=== PATIENT | male | born 1970 | race Asian ===

== ENCOUNTER 2017-12-12 13:38 | Emergency (ER) | payer OTHER ==
[~2017-12-12] VITALS: Ht 170.2 cm; Wt 68.2 kg
[2017-12-12] MEDS ORDERED: OXYMETAZOLINE HCL 0.05% 15 ML NASAL SPRAY NASAL ONE (15:15)
[2017-12-12] MEDS ORDERED: ChlordiazePOXIDE HCL 25 MG CAPSULE PO ONE (15:45)
[2017-12-12 15:46] LABS: BASOPHILS % (AUTO) 0.3 % (0.0-2.0); EOSINOPHILS % (AUTO) 0.2 % (1.0-6.0); HEMATOCRIT 26.4 % (41-53); LYMPHOCYTES # (AUTO) 1.3 K/uL (1.0-4.8); LYMPHOCYTES % (AUTO) 8.8 % (22.0-44.0); MEAN CORPUSCULAR HEMOGLOBIN 31.7 pg (26.0-34.0); MEAN CORPUSCULAR HGB CONC 34.1 G/dL (31.0-37.0); MEAN CORPUSCULAR VOLUME 93 fL (80-100); MONOCYTES # (AUTO) 0.9 K/uL (0.1-1.0); MONOCYTES % (AUTO) 6.1 % (2.0-9.0); NEUTROPHILS # (AUTO) 12.7 K/uL (1.8-7.7); NEUTROPHILS % (AUTO) 84.6 % (40.0-70.0); PLATELET COUNT (AUTO) 347 K/uL (150-450); RED BLOOD CELL COUNT(AUTO) 2.83 MIL/uL (4.50-5.90); RED CELL DISTRIBUTION WIDTH 14.1 % (11.5-14.5)
[2017-12-12 15:55] LABS: ANION GAP 9 mmol/L (8-16); CALCIUM, TOTAL 7.9 mg/dL (8.8-10.5); CARBON DIOXIDE 24 mmol/L (22-29); CHLORIDE 99 mmol/L (98-107); CREATININE 0.82 mg/dL (0.60-1.30); GLOMERULAR FILTR. RATE CALC > 60 mL/min (>60); GLUCOSE,RANDOM 146 mg/dL (70-110); POTASSIUM 3.7 mmol/L (3.5-5.1); SODIUM SERUM 132 mmol/L (136-145); UREA NITROGEN, BLOOD 20 mg/dL (7-18)
[2017-12-12 15:58] VITALS: BP 122/84
== END 2017-12-12 16:29 | disposition home or self-care (01) ==
LOC: EMS 13:56
DX: R04.0 Epistaxis (principal); F10.239 Alcohol dependence with withdrawal, unspecified; Y90.9 Presence of alcohol in blood, level not specified; V19.9XXA Pedal cyclist (driver) (passenger) injured in unspecified traffic accident, initial encounter; Y93.89 Activity, other specified; Y92.89 Other specified places as the place of occurrence of the external cause; Y99.8 Other external cause status
CPT/HCPCS: 30901; 99284

== ENCOUNTER 2017-12-14 18:50 | Emergency (ER) | payer OTHER ==
[~2017-12-14] VITALS: Ht 170.2 cm; Wt 68.0 kg
[2017-12-14] MEDS ORDERED: ACETAMINOPHEN/CODEINE 300-30 MG TABLET PO ONE (19:30)
[2017-12-14 19:34] VITALS: BP 121/70
== END 2017-12-14 19:58 | disposition home or self-care (01) ==
LOC: EMS 18:52
DX: Z48.00 Encounter for change or removal of nonsurgical wound dressing (principal); R04.0 Epistaxis
CPT/HCPCS: 99283

== ENCOUNTER 2017-12-15 11:24 | Emergency (ER) | payer OTHER ==
[~2017-12-15] VITALS: Ht 170.2 cm; Wt 68.2 kg
[2017-12-15] MEDS ORDERED: TraMADol HCL 50 MG TABLET PO ONE (14:15)
[2017-12-15 14:43] LABS: BASOPHILS % (AUTO) 0.6 % (0.0-2.0); EOSINOPHILS % (AUTO) 1.9 % (1.0-6.0); HEMATOCRIT 21.9 % (41-53); HEMOGLOBIN 7.5 g/dL (13.5-17.5); LYMPHOCYTES # (AUTO) 1.1 K/uL (1.0-4.8); LYMPHOCYTES % (AUTO) 11.2 % (22.0-44.0); MEAN CORPUSCULAR HEMOGLOBIN 32.6 pg (26.0-34.0); MEAN CORPUSCULAR HGB CONC 34.3 G/dL (31.0-37.0); MEAN CORPUSCULAR VOLUME 95 fL (80-100); MONOCYTES # (AUTO) 0.4 K/uL (0.1-1.0); MONOCYTES % (AUTO) 4.4 % (2.0-9.0); NEUTROPHILS # (AUTO) 8.3 K/uL (1.8-7.7); NEUTROPHILS % (AUTO) 81.9 % (40.0-70.0); PLATELET COUNT (AUTO) 295 K/uL (150-450); RED CELL DISTRIBUTION WIDTH 14.3 % (11.5-14.5)
[2017-12-15] MEDS ORDERED: HYDROCODONE/ACETAMINOPHEN 10-325 MG TABLET PO ONE (15:00)
[2017-12-15 15:46] LABS: PLATELET MORPHOLOGY COMMENT GIANT PLTS PRESENT
[2017-12-15 18:52] VITALS: BP 122/91
== END 2017-12-15 19:33 | disposition left against medical advice (07) ==
LOC: EMS 11:26
DX: R04.0 Epistaxis (principal)
CPT/HCPCS: 30901; 99283; 99284

== ENCOUNTER 2018-02-15 10:42 | Emergency (ER) | payer OTHER ==
[~2018-02-15] VITALS: Ht 170.2 cm; Wt 68.2 kg
[2018-02-15 11:21] VITALS: BP 140/97
== END 2018-02-15 12:14 | disposition home or self-care (01) ==
LOC: EMS 10:44
DX: F10.10 Alcohol abuse, uncomplicated (principal)
CPT/HCPCS: 99283

== ENCOUNTER 2018-04-08 12:05 | Emergency (ER) | payer OTHER ==
[~2018-04-08] VITALS: Ht 170.2 cm; Wt 68.2 kg
[2018-04-08] MEDS ORDERED: ChlordiazePOXIDE HCL 25 MG CAPSULE PO ONE (13:15)
[2018-04-08 13:24] VITALS: BP 128/84
== END 2018-04-08 13:25 | disposition home or self-care (01) ==
LOC: EMS 12:06
DX: F10.20 Alcohol dependence, uncomplicated (principal); Y90.9 Presence of alcohol in blood, level not specified
CPT/HCPCS: 99283

== ENCOUNTER 2018-05-04 19:16 | Emergency (ER) | payer SELFPAY ==
[~2018-05-04] VITALS: Ht 170.2 cm; Wt 68.2 kg
[2018-05-04 19:54] VITALS: BP 132/89
[2018-05-04] MEDS ORDERED: CEPHALEXIN MONOHYDRATE 500 MG CAPSULE PO ONE (20:15)
[2018-05-04] MEDS ORDERED: MUPIROCIN CALCIUM 2% 22 GM OINTMENT TP ONE (20:15)
[2018-05-04] MEDS ORDERED: KETOROLAC TROMETHAMINE 60 MG/2 ML VIAL IM ONE (20:15)
[2018-05-04] MEDS ORDERED: SULFAMETHOX/TRIMETH DS 800-160 MG/TABLET PO ONE (20:15)
[2018-05-04] MEDS ORDERED: ChlordiazePOXIDE HCL 25 MG CAPSULE PO ONE (20:30)
== END 2018-05-04 21:51 | disposition home or self-care (01) ==
LOC: EMS 19:16
DX: S51.012D Laceration without foreign body of left elbow, subsequent encounter (principal); L03.116 Cellulitis of left lower limb; X58.XXXD Exposure to other specified factors, subsequent encounter
CPT/HCPCS: 96372; 99284; J1885

== ENCOUNTER 2018-10-24 18:14 | Inpatient (IN) | payer OTHER ==
[~2018-10-24] VITALS: Ht 172.7 cm; Wt 70.1 kg
[2018-10-24] MEDS ORDERED: SODIUM CHLORIDE 0.9% 1,000 ML IV ONE ×2 (19:15→21:15)
[2018-10-24 19:36] LABS: HEMATOCRIT 40.7 % (41-53); HEMOGLOBIN 13.6 g/dL (13.5-17.5); MEAN CORPUSCULAR HEMOGLOBIN 30.8 pg (26.0-34.0); MEAN CORPUSCULAR HGB CONC 33.3 G/dL (31.0-37.0); MEAN CORPUSCULAR VOLUME 93 fL (80-100); PLATELET COUNT (AUTO) 430 K/uL (150-450); RED CELL DISTRIBUTION WIDTH 14.2 % (11.5-14.5)
[2018-10-24 19:50] LABS: ANION GAP 13 mmol/L (8-16); CARBON DIOXIDE 23 mmol/L (22-29); CHLORIDE 96 mmol/L (98-107); CREATININE 1.25 mg/dL (0.60-1.30); GLUCOSE,RANDOM 125 mg/dL (70-110); POTASSIUM 3.8 mmol/L (3.5-5.1); SODIUM SERUM 132 mmol/L (136-145); UREA NITROGEN, BLOOD 19 mg/dL (7-18)
[2018-10-24 19:51] LABS: GLOMERULAR FILTR. RATE CALC > 60 mL/min (>60)
[2018-10-24 19:55] LABS: ALANINE AMINOTRANSFERASE 47 U/L (12-78); ALBUMIN 3.2 g/dL (3.4-5.0); ALKALINE PHOSPHATASE 333 U/L (46-116); ASPARTATE AMINOTRANSFERASE 66 U/L (15-37); BILIRUBIN,TOTAL 1.6 mg/dL (0.1-1.0); TOTAL PROTEIN, SERUM 8.1 g/dL (6.4-8.2)
[2018-10-24 20:14] LABS: BAND NEUTROPHILS % (MANUAL) 38 % (0-5); LYMPHOCYTES % (MANUAL) 1 % (22-44); MONOCYTES % (MANUAL) 1 % (2-9); SEGMENTED NEUTROPHILS % 60 % (40-70)
[2018-10-24 20:21] LABS: LACTIC ACID 2.5 mmol/L (0.4-2.0)
[2018-10-24] MEDS ORDERED: CefTRIAXone 1 GM/DEXTROSE 50 ML IV ONE (21:15)
[2018-10-24] MEDS ORDERED: SODIUM CHLORIDE 0.9% 100 ML ONE (21:17)
[2018-10-24] MEDS ORDERED: IOVERSOL 320 MG/ML 100 ML VIAL ONE (21:17)
[2018-10-24] MEDS ORDERED: ChlordiazePOXIDE HCL 25 MG CAPSULE PO ONE (21:30)
[2018-10-24] MEDS ORDERED: FentaNYL CITRATE-PF 100 MCG/2 ML VIAL IVP ONE (21:45)
[2018-10-24 22:36] LABS: APPEARANCE,URINE CLEAR (CLEAR); GLUCOSE, URINE (UA) NEGATIVE (NEGATIVE); KETONES,URINE TRACE mg/dL (NEGATIVE); LEUKOCYTE ESTERASE ,URINE SMALL (NEGATIVE); NITRATE,URINE POSITIVE (NEGATIVE); OCCULT BLOOD,URINE NEGATIVE (NEGATIVE); PH,URINE 5.5 (5.0-8.0); PROTEIN,URINE POS 1+ (NEGATIVE); UROBILINOGEN,URINE 0.2 mg/dL (<=1.0)
[2018-10-24 22:37] LABS: BILIRUBIN,URINE PRELIM. POSITIVE (NEGATIVE)
[2018-10-24 22:41] LABS: AMPHET/METH SCREEN,URINE NEGATIVE (NEGATIVE); BARBITURATE SCREEN, URINE NEGATIVE (NEGATIVE); BENZODIAZEPINES SCREEN,URINE NEGATIVE (NEGATIVE); CANNABINOID SCREEN,URINE NEGATIVE (NEGATIVE); COCAINE SCREEN,URINE NEGATIVE (NEGATIVE); METHADONE SCREEN, URINE NEGATIVE (NEGATIVE); OPIATE SCREEN,URINE NEGATIVE (NEGATIVE)
[2018-10-24 22:43] LABS: PHENCYCLIDINE SCREEN,URINE NEGATIVE (NEGATIVE)
[2018-10-24 22:44] LABS: RBC,URINE None Seen /HPF (0-2); SQUAMOUS EPITHELIAL CELL,UR Few /LPF (None Seen)
[2018-10-24 22:45] LABS: BACTERIA,URINE Rare /HPF (None Seen)
[2018-10-24] MEDS ORDERED: VANCOMYCIN HCL 1 GM/D5% WATER 200 ML IV ONE (22:45)
[2018-10-24] MEDS ORDERED: MAGNESIUM SULFATE 2 GM, MVI, ADULT NO.1 WITH VIT K 10 ML, THIAMINE HCL 100 MG, FOLIC AC... IV ONE ×5 (22:45)
[2018-10-25] MEDS ORDERED: ZOLPIDEM TARTRATE 5 MG TABLET PO PRN
[2018-10-25] MEDS ORDERED: ACETAMINOPHEN 325 MG TABLET PO PRN
[2018-10-25] MEDS ORDERED: ONDANSETRON HCL 4 MG/2 ML VIAL IVP PRN ×2
[2018-10-25] MEDS ORDERED: MAGNESIUM HYDROXIDE SUSPENSION 30 ML UDCUP PO PRN
[2018-10-25] MEDS ORDERED: BISACODYL 10 MG RECTAL RECTAL SUPPOSITORY PR PRN
[2018-10-25] MEDS ORDERED: ALBUTEROL SULFATE 2.5 MG/0.5 ML NEB SOLUTION NEB PRN
[2018-10-25] MEDS ORDERED: 0.9% SODIUM CHLORIDE 10 ML SYRINGE IVP PRN
[2018-10-25] MEDS ORDERED: PIPERACILLIN/TAZO 3.375 GM/D5W 50 ML IV ONE
[2018-10-25] MEDS ORDERED: IPRATROPIUM BROMIDE 0.5 MG/2.5 ML NEB SOLUTION NEB PRN
[2018-10-25] MEDS: PIPERACILLIN/TAZO 3.375 GM/D5W 50 ML IV SCH ×4 (00:30→17:52)
[2018-10-25] MEDS ORDERED: PIPERACILLIN/TAZO 3.375 GM/D5W 50 ML IV SCH ×2 (00:30)
[2018-10-25] MEDS ORDERED: MORPHINE SULFATE 4 MG/ML SYRINGE IVP ONE (01:45)
[2018-10-25] MEDS: HYDROCODONE/ACETAMINOPHEN 5-325 MG TABLET PO PRN (02:09)
[2018-10-25] MEDS: PANTOPRAZOLE SODIUM 40 MG/VIAL IVP SCH (07:35)
[2018-10-25] MEDS: HEPARIN SODIUM,PORCINE 5,000 UNITS/ML VIAL SQ SCH ×3 (07:35→16:10)
[2018-10-25] MEDS: DOCUSATE SODIUM 100 MG CAPSULE PO SCH ×2 (07:35→20:42)
[2018-10-25] MEDS: VANCOMYCIN HCL 1 GM/D5% WATER 200 ML IV SCH ×2 (07:41→20:42)
[2018-10-25] MEDS ORDERED: VANCOMYCIN HCL 1 GM/D5% WATER 200 ML IV ONE (08:00)
[2018-10-25] MEDS ORDERED: SODIUM CHLORIDE 0.9% 1,000 ML IV ONE (08:45)
[2018-10-25] MEDS ORDERED: VANCOMYCIN HCL 1 GM/D5% WATER 200 ML IV SCH (09:00)
[2018-10-25 09:51] LABS: BASOPHILS % (AUTO) 0.2 % (0.0-2.0); EOSINOPHILS % (AUTO) 0.6 % (1.0-6.0); HEMATOCRIT 39.6 % (41-53); HEMOGLOBIN 13.3 g/dL (13.5-17.5); LYMPHOCYTES # (AUTO) 0.1 K/uL (1.0-4.8); LYMPHOCYTES % (AUTO) 0.7 % (22.0-44.0); MEAN CORPUSCULAR HEMOGLOBIN 31.7 pg (26.0-34.0); MEAN CORPUSCULAR HGB CONC 33.7 G/dL (31.0-37.0); MEAN CORPUSCULAR VOLUME 94 fL (80-100); MONOCYTES # (AUTO) 0.2 K/uL (0.1-1.0); MONOCYTES % (AUTO) 1.3 % (2.0-9.0); NEUTROPHILS # (AUTO) 13.9 K/uL (1.8-7.7); PLATELET COUNT (AUTO) 293 K/uL (150-450); RED CELL DISTRIBUTION WIDTH 14.6 % (11.5-14.5)
[2018-10-25 09:52] LABS: NEUTROPHILS % (AUTO) 97.2 % (40.0-70.0)
[2018-10-25 09:59] LABS: ANION GAP 12 mmol/L (8-16); CARBON DIOXIDE 19 mmol/L (22-29); CHLORIDE 98 mmol/L (98-107); CREATININE 1.21 mg/dL (0.60-1.30); GLOMERULAR FILTR. RATE CALC > 60 mL/min (>60); GLUCOSE,RANDOM 155 mg/dL (70-110); POTASSIUM 3.6 mmol/L (3.5-5.1); SODIUM SERUM 129 mmol/L (136-145); UREA NITROGEN, BLOOD 22 mg/dL (7-18)
[2018-10-25 12:38] VITALS: BP 138/68
[2018-10-25] MEDS: MORPHINE SULFATE 4 MG/ML SYRINGE IVP PRN ×2 (14:42→18:17)
[2018-10-25] MEDS: ChlordiazePOXIDE HCL 25 MG CAPSULE PO SCH ×2 (14:48→17:52)
[2018-10-25 15:39] VITALS: BP 131/47
[2018-10-25] MEDS ORDERED: GADOBUTROL 1 MMOL/ML 10 ML VIAL IVP ONE (15:49)
[2018-10-25] MEDS: LORazepam 2 MG/ML VIAL IVP PRN (16:10)
[2018-10-25 20:00] VITALS: BP 116/97
[2018-10-26 00:30] VITALS: BP 113/62
[2018-10-26] MEDS: PIPERACILLIN/TAZO 3.375 GM/D5W 50 ML IV SCH ×4 (01:06→18:53)
[2018-10-26] MEDS: ChlordiazePOXIDE HCL 25 MG CAPSULE PO SCH ×4 (01:06→18:15)
[2018-10-26] MEDS: HEPARIN SODIUM,PORCINE 5,000 UNITS/ML VIAL SQ SCH ×3 (01:07→16:00)
[2018-10-26 05:00] VITALS: BP 104/58
[2018-10-26 07:23] LABS: ANION GAP 11 mmol/L (8-16); CARBON DIOXIDE 20 mmol/L (22-29); CHLORIDE 97 mmol/L (98-107); CREATININE 1.18 mg/dL (0.60-1.30); GLOMERULAR FILTR. RATE CALC > 60 mL/min (>60); GLUCOSE,RANDOM 90 mg/dL (70-110); SODIUM SERUM 128 mmol/L (136-145); UREA NITROGEN, BLOOD 18 mg/dL (7-18); VANCOMYCIN,RANDOM 9.6 mcg/mL (25.0-50.0)
[2018-10-26 07:30] LABS: POTASSIUM 2.9 mmol/L (3.5-5.1)
[2018-10-26] MEDS: FOLIC ACID 1 MG TABLET PO SCH (08:03)
[2018-10-26] MEDS: VANCOMYCIN HCL 1.25 GM in DEXTROSE 5%-WATER 250 ML IV SCH ×2 (08:03→16:43)
[2018-10-26] MEDS: PANTOPRAZOLE SODIUM 40 MG/VIAL IVP SCH (08:03)
[2018-10-26] MEDS: DOCUSATE SODIUM 100 MG CAPSULE PO SCH ×2 (08:04→20:24)
[2018-10-26] MEDS: MULTIVITAMINS, THERAPEUTIC TABLET PO SCH (08:04)
[2018-10-26] MEDS: THIAMINE HCL 100 MG TABLET PO SCH (08:04)
[2018-10-26 09:12] LABS: BASOPHILS % (AUTO) 0.2 % (0.0-2.0); EOSINOPHILS % (AUTO) 1.6 % (1.0-6.0); HEMATOCRIT 35.4 % (41-53); LYMPHOCYTES # (AUTO) 0.2 K/uL (1.0-4.8); LYMPHOCYTES % (AUTO) 1.3 % (22.0-44.0); MEAN CORPUSCULAR HEMOGLOBIN 31.3 pg (26.0-34.0); MEAN CORPUSCULAR HGB CONC 33.8 G/dL (31.0-37.0); MEAN CORPUSCULAR VOLUME 93 fL (80-100); MONOCYTES # (AUTO) 0.3 K/uL (0.1-1.0); MONOCYTES % (AUTO) 2.1 % (2.0-9.0); NEUTROPHILS # (AUTO) 12.4 K/uL (1.8-7.7); PLATELET COUNT (AUTO) 227 K/uL (150-450); RED BLOOD CELL COUNT(AUTO) 3.83 MIL/uL (4.50-5.90); RED CELL DISTRIBUTION WIDTH 14.3 % (11.5-14.5)
[2018-10-26 09:13] LABS: NEUTROPHILS % (AUTO) 94.8 % (40.0-70.0)
[2018-10-26] MEDS ORDERED: POTASSIUM CHLORIDE 20 MEQ ER TABLET PO ONE (10:30)
[2018-10-26 10:47] LABS: THYROID STIMULATING HORMONE 0.54 uIU/mL (0.36-3.74)
[2018-10-26] MEDS: POTASSIUM CHL 10 MEQ/WATER 50 ML IV SCH ×4 (10:49→18:14)
[2018-10-26] MEDS: SODIUM CHLORIDE 0.9% 1,000 ML IV SCH (10:49)
[2018-10-26 12:00] VITALS: BP 116/78
[2018-10-26] MEDS: HYDROCODONE/ACETAMINOPHEN 5-325 MG TABLET PO PRN (12:24)
[2018-10-26 15:39] VITALS: BP 98/58
[2018-10-26 16:16] LABS: C.DIFF GDH ANTIGEN, Stool Negative (Negative); C.DIFF TOXINS A&B, Stool Negative (Negative)
[2018-10-26] MEDS ORDERED: MAGNESIUM SULFATE 2 GM/WATER 50 ML IV ONE (16:30)
[2018-10-26] MEDS ORDERED: SODIUM CHLORIDE 0.9% 250 ML IV ONE (16:37)
[2018-10-26 19:44] VITALS: BP 103/61
[2018-10-27 00:02] VITALS: BP 96/60
[2018-10-27] MEDS: PIPERACILLIN/TAZO 3.375 GM/D5W 50 ML IV SCH ×5 (00:30→23:34)
[2018-10-27] MEDS: HEPARIN SODIUM,PORCINE 5,000 UNITS/ML VIAL SQ SCH ×4 (00:31→23:35)
[2018-10-27] MEDS: VANCOMYCIN HCL 1.25 GM in DEXTROSE 5%-WATER 250 ML IV SCH ×4 (00:31→23:34)
[2018-10-27] MEDS: ChlordiazePOXIDE HCL 25 MG CAPSULE PO SCH ×5 (00:31→23:35)
[2018-10-27] MEDS: SODIUM CHLORIDE 0.9% 1,000 ML IV SCH ×2 (00:32→16:25)
[2018-10-27 04:53] VITALS: BP 118/66
[2018-10-27] MEDS: HYDROCODONE/ACETAMINOPHEN 5-325 MG TABLET PO PRN ×3 (05:48→22:35)
[2018-10-27 07:09] VITALS: BP 107/59
[2018-10-27 07:34] LABS: ALBUMIN 1.7 g/dL (3.4-5.0); BILIRUBIN,TOTAL 1.5 mg/dL (0.1-1.0); CALCIUM, TOTAL 6.9 mg/dL (8.8-10.5); CREATININE 1.28 mg/dL (0.60-1.30); POTASSIUM 3.1 mmol/L (3.5-5.1); TOTAL PROTEIN, SERUM 5.6 g/dL (6.4-8.2)
[2018-10-27] MEDS: THIAMINE HCL 100 MG TABLET PO SCH (08:30)
[2018-10-27] MEDS: DOCUSATE SODIUM 100 MG CAPSULE PO SCH ×2 (08:36→21:00)
[2018-10-27] MEDS: FOLIC ACID 1 MG TABLET PO SCH (08:36)
[2018-10-27] MEDS: PANTOPRAZOLE SODIUM 40 MG/VIAL IVP SCH (08:36)
[2018-10-27] MEDS: MULTIVITAMINS, THERAPEUTIC TABLET PO SCH (08:36)
[2018-10-27 11:01] VITALS: BP 101/61
[2018-10-27] MEDS ORDERED: POTASSIUM CHL 10 MEQ/WATER 50 ML IV PRN (11:45)
[2018-10-27] MEDS ORDERED: POTASSIUM CHLORIDE 20 MEQ ER TABLET PO PRN (11:45)
[2018-10-27 15:37] VITALS: BP 97/53
[2018-10-27 20:18] VITALS: BP 93/60
[2018-10-28 00:17] VITALS: BP 94/61
[2018-10-28] MEDS: PIPERACILLIN/TAZO 3.375 GM/D5W 50 ML IV SCH ×4 (05:46→23:59)
[2018-10-28 05:53] VITALS: BP 96/63
[2018-10-28 07:35] VITALS: BP 93/55
[2018-10-28 08:06] LABS: ALANINE AMINOTRANSFERASE 35 U/L (12-78); ALBUMIN 1.6 g/dL (3.4-5.0); ALKALINE PHOSPHATASE 205 U/L (46-116); ANION GAP 8 mmol/L (8-16); ASPARTATE AMINOTRANSFERASE 21 U/L (15-37); BILIRUBIN,TOTAL 1.4 mg/dL (0.1-1.0); CALCIUM, TOTAL 6.9 mg/dL (8.8-10.5); CARBON DIOXIDE 21 mmol/L (22-29); CHLORIDE 101 mmol/L (98-107); CREATININE 1.21 mg/dL (0.60-1.30); GLOMERULAR FILTR. RATE CALC > 60 mL/min (>60); GLUCOSE,RANDOM 89 mg/dL (70-110); POTASSIUM 3.5 mmol/L (3.5-5.1); SODIUM SERUM 130 mmol/L (136-145); TOTAL PROTEIN, SERUM 4.7 g/dL (6.4-8.2); UREA NITROGEN, BLOOD 17 mg/dL (7-18); VANCOMYCIN,RANDOM 22.1 mcg/mL (25.0-50.0)
[2018-10-28] MEDS: FOLIC ACID 1 MG TABLET PO SCH (08:39)
[2018-10-28] MEDS: VANCOMYCIN HCL 1.25 GM in DEXTROSE 5%-WATER 250 ML IV SCH (08:39)
[2018-10-28] MEDS: DOCUSATE SODIUM 100 MG CAPSULE PO SCH ×2 (08:39→20:14)
[2018-10-28] MEDS: PANTOPRAZOLE SODIUM 40 MG/VIAL IVP SCH (08:39)
[2018-10-28] MEDS: HEPARIN SODIUM,PORCINE 5,000 UNITS/ML VIAL SQ SCH ×3 (08:39→23:59)
[2018-10-28] MEDS: MULTIVITAMINS, THERAPEUTIC TABLET PO SCH (08:40)
[2018-10-28] MEDS: ChlordiazePOXIDE HCL 25 MG CAPSULE PO SCH ×2 (08:40→12:00)
[2018-10-28] MEDS: THIAMINE HCL 100 MG TABLET PO SCH (08:40)
[2018-10-28] MEDS: HYDROCODONE/ACETAMINOPHEN 5-325 MG TABLET PO PRN ×2 (11:37→20:11)
[2018-10-28 11:42] VITALS: BP 115/68
[2018-10-28 14:10] LABS: BASOPHILS % (AUTO) 0.5 % (0.0-2.0); EOSINOPHILS % (AUTO) 9.1 % (1.0-6.0); HEMATOCRIT 34.8 % (41-53); HEMOGLOBIN 11.8 g/dL (13.5-17.5); LYMPHOCYTES # (AUTO) 0.9 K/uL (1.0-4.8); LYMPHOCYTES % (AUTO) 4.6 % (22.0-44.0); MEAN CORPUSCULAR HEMOGLOBIN 30.8 pg (26.0-34.0); MEAN CORPUSCULAR VOLUME 91 fL (80-100); MONOCYTES # (AUTO) 1.1 K/uL (0.1-1.0); MONOCYTES % (AUTO) 5.3 % (2.0-9.0); NEUTROPHILS # (AUTO) 16.1 K/uL (1.8-7.7); NEUTROPHILS % (AUTO) 80.5 % (40.0-70.0); PLATELET COUNT (AUTO) 193 K/uL (150-450); RED BLOOD CELL COUNT(AUTO) 3.84 MIL/uL (4.50-5.90); RED CELL DISTRIBUTION WIDTH 14.9 % (11.5-14.5)
[2018-10-28 14:24] LABS: ALANINE AMINOTRANSFERASE 32 U/L (12-78); ALBUMIN 1.5 g/dL (3.4-5.0); ALKALINE PHOSPHATASE 232 U/L (46-116); ANION GAP 10 mmol/L (8-16); ASPARTATE AMINOTRANSFERASE 19 U/L (15-37); BILIRUBIN,TOTAL 1.5 mg/dL (0.1-1.0); CALCIUM, TOTAL 7.8 mg/dL (8.8-10.5); CARBON DIOXIDE 20 mmol/L (22-29); CHLORIDE 99 mmol/L (98-107); CREATININE 1.26 mg/dL (0.60-1.30); GLOMERULAR FILTR. RATE CALC > 60 mL/min (>60); GLUCOSE,RANDOM 115 mg/dL (70-110); POTASSIUM 3.4 mmol/L (3.5-5.1); SODIUM SERUM 129 mmol/L (136-145); TOTAL PROTEIN, SERUM 5.8 g/dL (6.4-8.2); UREA NITROGEN, BLOOD 18 mg/dL (7-18)
[2018-10-28] MEDS: VANCOMYCIN HCL 1 GM/D5% WATER 200 ML IV SCH (16:52)
[2018-10-28] MEDS: SODIUM CHLORIDE 0.9% 1,000 ML IV SCH (16:58)
[2018-10-28] MEDS: ChlordiazePOXIDE HCL 10 MG CAPSULE PO SCH ×2 (18:00→23:59)
[2018-10-28 20:25] VITALS: BP 102/61
[2018-10-29] VITALS (7 sets, daily range): BP systolic 95–115; BP diastolic 62–71
[2018-10-29] MEDS: ChlordiazePOXIDE HCL 10 MG CAPSULE PO SCH ×4 (05:49→23:36)
[2018-10-29] MEDS: PIPERACILLIN/TAZO 3.375 GM/D5W 50 ML IV SCH ×4 (05:50→23:36)
[2018-10-29 07:00] LABS: ALANINE AMINOTRANSFERASE 24 U/L (12-78); ALBUMIN 1.4 g/dL (3.4-5.0); ALKALINE PHOSPHATASE 227 U/L (46-116); ANION GAP 7 mmol/L (8-16); ASPARTATE AMINOTRANSFERASE 16 U/L (15-37); CALCIUM, TOTAL 7.4 mg/dL (8.8-10.5); CARBON DIOXIDE 23 mmol/L (22-29); CHLORIDE 102 mmol/L (98-107); CREATININE 1.26 mg/dL (0.60-1.30); GLOMERULAR FILTR. RATE CALC > 60 mL/min (>60); GLUCOSE,RANDOM 105 mg/dL (70-110); SODIUM SERUM 132 mmol/L (136-145); TOTAL PROTEIN, SERUM 5.5 g/dL (6.4-8.2); UREA NITROGEN, BLOOD 16 mg/dL (7-18)
[2018-10-29] MEDS: VANCOMYCIN HCL 1 GM/D5% WATER 200 ML IV SCH ×3 (09:19→15:50)
[2018-10-29] MEDS: HEPARIN SODIUM,PORCINE 5,000 UNITS/ML VIAL SQ SCH ×3 (09:20→23:36)
[2018-10-29] MEDS: THIAMINE HCL 100 MG TABLET PO SCH (09:20)
[2018-10-29] MEDS: PANTOPRAZOLE SODIUM 40 MG/VIAL IVP SCH (09:20)
[2018-10-29] MEDS: MULTIVITAMINS, THERAPEUTIC TABLET PO SCH (09:20)
[2018-10-29] MEDS: FOLIC ACID 1 MG TABLET PO SCH (09:20)
[2018-10-29] MEDS: DOCUSATE SODIUM 100 MG CAPSULE PO SCH ×3 (09:20→20:37)
[2018-10-29] MEDS: HYDROCODONE/ACETAMINOPHEN 5-325 MG TABLET PO PRN (09:32)
[2018-10-29] MEDS: SODIUM CHLORIDE 0.9% 1,000 ML IV SCH (09:33)
[2018-10-29] MEDS ORDERED: POTASSIUM CHLORIDE 20 MEQ ER TABLET PO ONE (14:45)
[2018-10-29] MEDS: ACETAMINOPHEN 325 MG TABLET PO PRN (20:33)
[2018-10-29] MEDS: LORazepam 2 MG/ML VIAL IVP PRN (20:40)
[2018-10-30] MEDS: VANCOMYCIN HCL 1 GM/D5% WATER 200 ML IV SCH ×3 (00:35→19:56)
[2018-10-30 01:10] VITALS: BP 115/71
[2018-10-30] MEDS: LORazepam 2 MG/ML VIAL IVP PRN ×2 (01:38→09:25)
[2018-10-30 04:37] VITALS: BP 111/71
[2018-10-30] MEDS: PIPERACILLIN/TAZO 3.375 GM/D5W 50 ML IV SCH ×3 (05:22→17:44)
[2018-10-30] MEDS: ChlordiazePOXIDE HCL 10 MG CAPSULE PO SCH ×5 (05:31→18:02)
[2018-10-30 06:36] LABS: HEMATOCRIT 42.7 % (41-53); HEMOGLOBIN 14.7 g/dL (13.5-17.5); MEAN CORPUSCULAR HEMOGLOBIN 31.3 pg (26.0-34.0); MEAN CORPUSCULAR HGB CONC 34.4 G/dL (31.0-37.0); MEAN CORPUSCULAR VOLUME 91 fL (80-100); PLATELET COUNT (AUTO) 332 K/uL (150-450); RED BLOOD CELL COUNT(AUTO) 4.69 MIL/uL (4.50-5.90); RED CELL DISTRIBUTION WIDTH 15.3 % (11.5-14.5)
[2018-10-30 07:20] LABS: CALCIUM, TOTAL 8.3 mg/dL (8.8-10.5); CREATININE 1.4 mg/dL (0.60-1.30); POTASSIUM 3.8 mmol/L (3.5-5.1); TOTAL PROTEIN, SERUM 7.1 g/dL (6.4-8.2)
[2018-10-30 08:06] VITALS: BP 125/85
[2018-10-30] MEDS: MULTIVITAMINS, THERAPEUTIC TABLET PO SCH (08:25)
[2018-10-30] MEDS: FOLIC ACID 1 MG TABLET PO SCH (08:25)
[2018-10-30] MEDS: PANTOPRAZOLE SODIUM 40 MG/VIAL IVP SCH (08:25)
[2018-10-30] MEDS: DOCUSATE SODIUM 100 MG CAPSULE PO SCH ×2 (08:26→19:59)
[2018-10-30] MEDS: HEPARIN SODIUM,PORCINE 5,000 UNITS/ML VIAL SQ SCH ×2 (08:26→17:44)
[2018-10-30] MEDS: THIAMINE HCL 100 MG TABLET PO SCH (08:26)
[2018-10-30 08:34] LABS: BAND NEUTROPHILS % (MANUAL) 1 % (0-5); EOSINOPHILS % (MANUAL) 6 % (1-6); LYMPHOCYTES % (MANUAL) 21 % (22-44); MONOCYTES % (MANUAL) 7 % (2-9); PLATELET MORPHOLOGY COMMENT GIANT PLTS PRESENT; SEGMENTED NEUTROPHILS % 65 % (40-70)
[2018-10-30] MEDS ORDERED: GADOBUTROL 1 MMOL/ML 10 ML VIAL IVP ONE (10:17)
[2018-10-30 11:25] VITALS: BP 122/61
[2018-10-30] MEDS ORDERED: DEXAMETHASONE SOD PHOS 4 MG/ML VIAL IVP ONE (12:00)
[2018-10-30] MEDS ORDERED: PROPOFOL 1% 20 ML VIAL IVP ONE (12:00)
[2018-10-30] MEDS ORDERED: MIDAZOLAM HCL 2 MG/2 ML VIAL IVP ONE (12:00)
[2018-10-30] MEDS ORDERED: LIDOCAINE/PF 2% 5 ML VIAL INJ ONE (12:00)
[2018-10-30] MEDS ORDERED: BUPIVACAINE HCL/PF 0.25% 30 ML VIAL ONE (13:27)
[2018-10-30] MEDS ORDERED: ACETAMINOPHEN 1000 MG/ISO-OSM 100 ML IV ONE (13:27)
[2018-10-30] MEDS ORDERED: KETAMINE HCL 50 MG/ML 10 ML VIAL ONE (13:35)
[2018-10-30] MEDS ORDERED: SODIUM CHLORIDE 0.9% 1,000 ML IV ONE (13:45)
[2018-10-30] MEDS ORDERED: SODIUM CL IRRIG SOLN BAG 3,000 ML IRRIG ONE (13:47)
[2018-10-30] MEDS ORDERED: VANCOMYCIN HCL 1 GM/VIAL ONE (13:48)
[2018-10-30] MEDS ORDERED: RINGERS SOLUTION,LACTATED 500 ML IV ONE (14:43)
[2018-10-30 16:17] VITALS: BP 112/75
[2018-10-30] MEDS: SODIUM CHLORIDE 0.9% 1,000 ML IV SCH (17:46)
[2018-10-30 23:00] VITALS: BP 120/81
[2018-10-31] MEDS: ChlordiazePOXIDE HCL 10 MG CAPSULE PO SCH ×3 (00:15→12:39)
[2018-10-31] MEDS: HEPARIN SODIUM,PORCINE 5,000 UNITS/ML VIAL SQ SCH ×4 (00:16→23:32)
[2018-10-31] MEDS: PIPERACILLIN/TAZO 3.375 GM/D5W 50 ML IV SCH ×5 (00:16→23:26)
[2018-10-31 04:37] VITALS: BP 127/80
[2018-10-31 07:26] LABS: ALANINE AMINOTRANSFERASE 26 U/L (12-78); ALBUMIN 1.9 g/dL (3.4-5.0); ALKALINE PHOSPHATASE 254 U/L (46-116); ANION GAP 8 mmol/L (8-16); ASPARTATE AMINOTRANSFERASE 23 U/L (15-37); BILIRUBIN,TOTAL 0.5 mg/dL (0.1-1.0); CALCIUM, TOTAL 7.3 mg/dL (8.8-10.5); CARBON DIOXIDE 25 mmol/L (22-29); CHLORIDE 105 mmol/L (98-107); CREATININE 1.11 mg/dL (0.60-1.30); GLOMERULAR FILTR. RATE CALC > 60 mL/min (>60); GLUCOSE,RANDOM 167 mg/dL (70-110); POTASSIUM 3.4 mmol/L (3.5-5.1); SODIUM SERUM 138 mmol/L (136-145); TOTAL PROTEIN, SERUM 6.5 g/dL (6.4-8.2); UREA NITROGEN, BLOOD 16 mg/dL (7-18); VANCOMYCIN,RANDOM 23.4 mcg/mL (25.0-50.0)
[2018-10-31 08:00] VITALS: BP 138/91
[2018-10-31 08:51] LABS: HEMATOCRIT 35.9 % (41-53); HEMOGLOBIN 11.8 g/dL (13.5-17.5); MEAN CORPUSCULAR HGB CONC 32.7 G/dL (31.0-37.0); MEAN CORPUSCULAR VOLUME 92 fL (80-100); PLATELET COUNT (AUTO) 405 K/uL (150-450); RED BLOOD CELL COUNT(AUTO) 3.92 MIL/uL (4.50-5.90); RED CELL DISTRIBUTION WIDTH 15.2 % (11.5-14.5)
[2018-10-31] MEDS: DOCUSATE SODIUM 100 MG CAPSULE PO SCH ×2 (09:02→21:00)
[2018-10-31] MEDS: VANCOMYCIN HCL 1 GM/D5% WATER 200 ML IV SCH ×2 (09:02→21:09)
[2018-10-31] MEDS: MULTIVITAMINS, THERAPEUTIC TABLET PO SCH (09:02)
[2018-10-31] MEDS: HYDROCODONE/ACETAMINOPHEN 5-325 MG TABLET PO PRN ×2 (09:02→17:49)
[2018-10-31] MEDS: FOLIC ACID 1 MG TABLET PO SCH (09:02)
[2018-10-31] MEDS: THIAMINE HCL 100 MG TABLET PO SCH (09:02)
[2018-10-31] MEDS: PANTOPRAZOLE SODIUM 40 MG/VIAL IVP SCH (09:03)
[2018-10-31 09:51] LABS: BAND NEUTROPHILS % (MANUAL) 6 % (0-5); BASOPHILS % (MANUAL) 1 % (0-2); LYMPHOCYTES % (MANUAL) 12 % (22-44); METAMYELOCYTES % 3 % (0-0); MONOCYTES % (MANUAL) 8 % (2-9); MYELOCYTES % 1 % (0-0); SEGMENTED NEUTROPHILS % 69 % (40-70)
[2018-10-31] MEDS: SODIUM CHLORIDE 0.9% 1,000 ML IV SCH (12:39)
[2018-10-31 13:00] VITALS: BP 131/87
[2018-10-31 16:00] VITALS: BP 126/78
[2018-10-31] MEDS ORDERED: POTASSIUM CHL 10 MEQ/WATER 50 ML IV PRN (16:45)
[2018-10-31 19:26] VITALS: BP 135/77
[2018-10-31] MEDS ORDERED: ChlordiazePOXIDE HCL 10 MG CAPSULE PO SCH (21:00)
[2018-10-31] MEDS: POTASSIUM CHLORIDE 20 MEQ ER TABLET PO PRN (23:32)
[2018-10-31 23:40] VITALS: BP 130/71
[2018-11-01] MEDS: HYDROCODONE/ACETAMINOPHEN 5-325 MG TABLET PO PRN ×3 (01:05→23:56)
[2018-11-01 04:00] VITALS: BP 127/75
[2018-11-01] MEDS: PIPERACILLIN/TAZO 3.375 GM/D5W 50 ML IV SCH ×4 (06:26→23:48)
[2018-11-01 06:52] LABS: ALANINE AMINOTRANSFERASE 21 U/L (12-78); ALBUMIN 1.5 g/dL (3.4-5.0); ALKALINE PHOSPHATASE 191 U/L (46-116); ANION GAP 11 mmol/L (8-16); ASPARTATE AMINOTRANSFERASE 20 U/L (15-37); BILIRUBIN,TOTAL 0.4 mg/dL (0.1-1.0); CALCIUM, TOTAL 7.1 mg/dL (8.8-10.5); CARBON DIOXIDE 22 mmol/L (22-29); CHLORIDE 108 mmol/L (98-107); CREATININE 1.05 mg/dL (0.60-1.30); GLOMERULAR FILTR. RATE CALC > 60 mL/min (>60); GLUCOSE,RANDOM 93 mg/dL (70-110); SODIUM SERUM 141 mmol/L (136-145); TOTAL PROTEIN, SERUM 5.6 g/dL (6.4-8.2); UREA NITROGEN, BLOOD 15 mg/dL (7-18)
[2018-11-01 07:56] VITALS: BP 120/70
[2018-11-01] MEDS: VANCOMYCIN HCL 1 GM/D5% WATER 200 ML IV SCH ×2 (08:10→20:09)
[2018-11-01] MEDS: THIAMINE HCL 100 MG TABLET PO SCH (08:14)
[2018-11-01] MEDS: PANTOPRAZOLE SODIUM 40 MG/VIAL IVP SCH (08:14)
[2018-11-01] MEDS: MULTIVITAMINS, THERAPEUTIC TABLET PO SCH (08:15)
[2018-11-01] MEDS: FOLIC ACID 1 MG TABLET PO SCH (08:15)
[2018-11-01] MEDS: HEPARIN SODIUM,PORCINE 5,000 UNITS/ML VIAL SQ SCH ×3 (08:15→23:48)
[2018-11-01] MEDS: DOCUSATE SODIUM 100 MG CAPSULE PO SCH ×2 (08:15→20:10)
[2018-11-01] MEDS: POTASSIUM CHLORIDE 20 MEQ ER TABLET PO PRN ×2 (09:50→15:29)
[2018-11-01 11:45] VITALS: BP 135/89
[2018-11-01] MEDS: SODIUM CHLORIDE 0.9% 1,000 ML IV SCH (13:22)
[2018-11-01] MEDS: ChlordiazePOXIDE HCL 25 MG CAPSULE PO SCH ×2 (15:29→20:09)
[2018-11-01 16:04] LABS: HEMATOCRIT 38.2 % (41-53); HEMOGLOBIN 12.3 g/dL (13.5-17.5); MEAN CORPUSCULAR HEMOGLOBIN 30.2 pg (26.0-34.0); MEAN CORPUSCULAR HGB CONC 32.2 G/dL (31.0-37.0); MEAN CORPUSCULAR VOLUME 94 fL (80-100); PLATELET COUNT (AUTO) 487 K/uL (150-450); RED BLOOD CELL COUNT(AUTO) 4.07 MIL/uL (4.50-5.90); RED CELL DISTRIBUTION WIDTH 15.9 % (11.5-14.5)
[2018-11-01 16:37] LABS: BAND NEUTROPHILS % (MANUAL) 9 % (0-5); BASOPHILS % (MANUAL) 1 % (0-2); EOSINOPHILS % (MANUAL) 1 % (1-6); LYMPHOCYTES % (MANUAL) 13 % (22-44); METAMYELOCYTES % 2 % (0-0); MONOCYTES % (MANUAL) 8 % (2-9); MYELOCYTES % 3 % (0-0); SEGMENTED NEUTROPHILS % 63 % (40-70)
[2018-11-01 16:44] VITALS: BP 125/81
[2018-11-01 19:42] VITALS: BP 140/97
[2018-11-01 23:51] VITALS: BP 157/93
[2018-11-02] MEDS: SODIUM CHLORIDE 0.9% 1,000 ML IV SCH ×2 (02:41→16:53)
[2018-11-02 04:49] VITALS: BP 135/92
[2018-11-02] MEDS: PIPERACILLIN/TAZO 3.375 GM/D5W 50 ML IV SCH ×4 (05:42→23:26)
[2018-11-02 06:21] LABS: ALANINE AMINOTRANSFERASE 27 U/L (12-78); ALBUMIN 1.8 g/dL (3.4-5.0); ALKALINE PHOSPHATASE 164 U/L (46-116); ANION GAP 6 mmol/L (8-16); ASPARTATE AMINOTRANSFERASE 20 U/L (15-37); BILIRUBIN,TOTAL 0.3 mg/dL (0.1-1.0); CALCIUM, TOTAL 7.1 mg/dL (8.8-10.5); CARBON DIOXIDE 25 mmol/L (22-29); CHLORIDE 109 mmol/L (98-107); CREATININE 1.17 mg/dL (0.60-1.30); GLOMERULAR FILTR. RATE CALC > 60 mL/min (>60); GLUCOSE,RANDOM 82 mg/dL (70-110); POTASSIUM 3.6 mmol/L (3.5-5.1); SODIUM SERUM 140 mmol/L (136-145); TOTAL PROTEIN, SERUM 5.8 g/dL (6.4-8.2); UREA NITROGEN, BLOOD 12 mg/dL (7-18); VANCOMYCIN,RANDOM 21.8 mcg/mL (25.0-50.0)
[2018-11-02 07:45] VITALS: BP 138/92
[2018-11-02] MEDS: HEPARIN SODIUM,PORCINE 5,000 UNITS/ML VIAL SQ SCH ×4 (08:00→23:26)
[2018-11-02] MEDS: DOCUSATE SODIUM 100 MG CAPSULE PO SCH ×3 (09:00→19:50)
[2018-11-02] MEDS: VANCOMYCIN HCL 1 GM/D5% WATER 200 ML IV SCH (09:05)
[2018-11-02] MEDS: THIAMINE HCL 100 MG TABLET PO SCH (09:05)
[2018-11-02] MEDS: ChlordiazePOXIDE HCL 25 MG CAPSULE PO SCH ×3 (09:05→19:50)
[2018-11-02] MEDS: FOLIC ACID 1 MG TABLET PO SCH (09:05)
[2018-11-02] MEDS: MULTIVITAMINS, THERAPEUTIC TABLET PO SCH (09:05)
[2018-11-02] MEDS: PANTOPRAZOLE SODIUM 40 MG/VIAL IVP SCH (09:05)
[2018-11-02 11:34] VITALS: BP 139/84
[2018-11-02 15:45] VITALS: BP 140/82
[2018-11-02] MEDS: VANCOMYCIN HCL 750 MG in DEXTROSE 5%-WATER 250 ML IV SCH (19:32)
[2018-11-02] MEDS: HYDROCODONE/ACETAMINOPHEN 5-325 MG TABLET PO PRN (19:50)
[2018-11-02 20:10] VITALS: BP 143/83
[2018-11-03 00:07] VITALS: BP 140/87
[2018-11-03 04:00] VITALS: BP 138/83
[2018-11-03] MEDS: PIPERACILLIN/TAZO 3.375 GM/D5W 50 ML IV SCH ×3 (05:53→17:27)
[2018-11-03 06:44] LABS: CALCIUM, TOTAL 7.7 mg/dL (8.8-10.5); CREATININE 1.29 mg/dL (0.60-1.30); POTASSIUM 3.8 mmol/L (3.5-5.1)
[2018-11-03 07:20] VITALS: BP 142/80
[2018-11-03] MEDS: VANCOMYCIN HCL 750 MG in DEXTROSE 5%-WATER 250 ML IV SCH ×2 (08:44→20:22)
[2018-11-03] MEDS: THIAMINE HCL 100 MG TABLET PO SCH (08:44)
[2018-11-03] MEDS: FOLIC ACID 1 MG TABLET PO SCH (08:44)
[2018-11-03] MEDS: MULTIVITAMINS, THERAPEUTIC TABLET PO SCH (08:44)
[2018-11-03] MEDS: PANTOPRAZOLE SODIUM 40 MG/VIAL IVP SCH (08:45)
[2018-11-03] MEDS: HEPARIN SODIUM,PORCINE 5,000 UNITS/ML VIAL SQ SCH ×2 (08:45→16:46)
[2018-11-03] MEDS: DOCUSATE SODIUM 100 MG CAPSULE PO SCH ×3 (08:45→21:00)
[2018-11-03 11:21] VITALS: BP 126/94
[2018-11-03] MEDS: ChlordiazePOXIDE HCL 10 MG CAPSULE PO SCH ×3 (13:00→21:00)
[2018-11-03] MEDS: SODIUM CHLORIDE 0.9% 1,000 ML IV SCH ×2 (13:00→18:30)
[2018-11-03 16:00] VITALS: BP 138/78
[2018-11-03 19:50] VITALS: BP 143/81
[2018-11-03] MEDS: HYDROCODONE/ACETAMINOPHEN 5-325 MG TABLET PO PRN (20:26)
[2018-11-04] MEDS: PIPERACILLIN/TAZO 3.375 GM/D5W 50 ML IV SCH ×4 (00:25→17:45)
[2018-11-04] MEDS: ACETAMINOPHEN 325 MG TABLET PO PRN ×2 (04:24→11:54)
[2018-11-04 04:30] VITALS: BP 136/76
[2018-11-04 06:56] LABS: HEMATOCRIT 33.4 % (41-53); HEMOGLOBIN 11.3 g/dL (13.5-17.5); MEAN CORPUSCULAR HEMOGLOBIN 30.7 pg (26.0-34.0); MEAN CORPUSCULAR HGB CONC 33.7 G/dL (31.0-37.0); MEAN CORPUSCULAR VOLUME 91 fL (80-100); PLATELET COUNT (AUTO) 635 K/uL (150-450); RED BLOOD CELL COUNT(AUTO) 3.67 MIL/uL (4.50-5.90); RED CELL DISTRIBUTION WIDTH 17.2 % (11.5-14.5)
[2018-11-04 07:15] LABS: ALBUMIN 1.9 g/dL (3.4-5.0); BILIRUBIN,TOTAL 0.5 mg/dL (0.1-1.0); CALCIUM, TOTAL 7.6 mg/dL (8.8-10.5); CREATININE 1.3 mg/dL (0.60-1.30); MAGNESIUM 1.9 mg/dL (1.80-2.40); POTASSIUM 3.9 mmol/L (3.5-5.1); TOTAL PROTEIN, SERUM 6.3 g/dL (6.4-8.2); VANCOMYCIN,RANDOM 16.7 mcg/mL (25.0-50.0)
[2018-11-04 08:10] LABS: BAND NEUTROPHILS % (MANUAL) 7 % (0-5); EOSINOPHILS % (MANUAL) 3 % (1-6); LYMPHOCYTES % (MANUAL) 12 % (22-44); METAMYELOCYTES % 1 % (0-0); MONOCYTES % (MANUAL) 6 % (2-9); MYELOCYTES % 1 % (0-0); SEGMENTED NEUTROPHILS % 70 % (40-70)
[2018-11-04] MEDS: ChlordiazePOXIDE HCL 10 MG CAPSULE PO SCH ×3 (08:21→20:38)
[2018-11-04] MEDS: DOCUSATE SODIUM 100 MG CAPSULE PO SCH ×2 (08:21→20:38)
[2018-11-04] MEDS: MULTIVITAMINS, THERAPEUTIC TABLET PO SCH (08:21)
[2018-11-04] MEDS: THIAMINE HCL 100 MG TABLET PO SCH (08:21)
[2018-11-04] MEDS: FOLIC ACID 1 MG TABLET PO SCH (08:21)
[2018-11-04] MEDS: PANTOPRAZOLE SODIUM 40 MG/VIAL IVP SCH (08:22)
[2018-11-04] MEDS: HEPARIN SODIUM,PORCINE 5,000 UNITS/ML VIAL SQ SCH ×3 (08:22→15:43)
[2018-11-04] MEDS: VANCOMYCIN HCL 750 MG in DEXTROSE 5%-WATER 250 ML IV SCH ×2 (08:22→20:38)
[2018-11-04] MEDS: SODIUM CHLORIDE 0.9% 1,000 ML IV SCH (08:24)
[2018-11-04 11:22] VITALS: BP 120/68
[2018-11-04] MEDS: HYDROCODONE/ACETAMINOPHEN 5-325 MG TABLET PO PRN ×2 (17:48→21:52)
[2018-11-05] MEDS: PIPERACILLIN/TAZO 3.375 GM/D5W 50 ML IV SCH ×4 (00:07→17:51)
[2018-11-05] MEDS: HEPARIN SODIUM,PORCINE 5,000 UNITS/ML VIAL SQ SCH ×3 (00:07→15:50)
[2018-11-05 00:17] VITALS: BP 119/85
[2018-11-05] MEDS: SODIUM CHLORIDE 0.9% 1,000 ML IV SCH ×2 (05:05→10:35)
[2018-11-05] MEDS: HYDROCODONE/ACETAMINOPHEN 5-325 MG TABLET PO PRN ×3 (05:06→21:00)
[2018-11-05 06:18] LABS: HEMATOCRIT 33.9 % (41-53); HEMOGLOBIN 11.2 g/dL (13.5-17.5); LYMPHOCYTES # (AUTO) 1.8 K/uL (1.0-4.8); LYMPHOCYTES % (AUTO) 10.3 % (22.0-44.0); MEAN CORPUSCULAR HEMOGLOBIN 30.7 pg (26.0-34.0); MEAN CORPUSCULAR HGB CONC 33.1 G/dL (31.0-37.0); MEAN CORPUSCULAR VOLUME 93 fL (80-100); MONOCYTES % (AUTO) 5.6 % (2.0-9.0); NEUTROPHILS # (AUTO) 13.5 K/uL (1.8-7.7); NEUTROPHILS % (AUTO) 78.1 % (40.0-70.0); PLATELET COUNT (AUTO) 670 K/uL (150-450); RED BLOOD CELL COUNT(AUTO) 3.66 MIL/uL (4.50-5.90); RED CELL DISTRIBUTION WIDTH 15.7 % (11.5-14.5)
[2018-11-05 06:23] LABS: CALCIUM, TOTAL 7.5 mg/dL (8.8-10.5); CREATININE 1.44 mg/dL (0.60-1.30); POTASSIUM 3.7 mmol/L (3.5-5.1)
[2018-11-05 08:14] VITALS: BP 113/72
[2018-11-05] MEDS: MULTIVITAMINS, THERAPEUTIC TABLET PO SCH (08:20)
[2018-11-05] MEDS: PANTOPRAZOLE SODIUM 40 MG/VIAL IVP SCH (08:20)
[2018-11-05] MEDS: VANCOMYCIN HCL 750 MG in DEXTROSE 5%-WATER 250 ML IV SCH ×2 (08:21→21:00)
[2018-11-05] MEDS: ChlordiazePOXIDE HCL 10 MG CAPSULE PO SCH ×3 (08:21→21:00)
[2018-11-05] MEDS: THIAMINE HCL 100 MG TABLET PO SCH (08:21)
[2018-11-05] MEDS: FOLIC ACID 1 MG TABLET PO SCH (08:21)
[2018-11-05] MEDS: DOCUSATE SODIUM 100 MG CAPSULE PO SCH ×2 (08:22→21:00)
[2018-11-05 13:12] VITALS: BP 141/75
[2018-11-05 15:46] VITALS: BP 138/71
[2018-11-05 20:57] VITALS: BP 153/89
[2018-11-06] VITALS (7 sets, daily range): BP systolic 111–135; BP diastolic 64–86
[2018-11-06] MEDS: PIPERACILLIN/TAZO 3.375 GM/D5W 50 ML IV SCH ×5 (00:29→23:41)
[2018-11-06] MEDS: HEPARIN SODIUM,PORCINE 5,000 UNITS/ML VIAL SQ SCH ×4 (00:30→23:41)
[2018-11-06] MEDS: HYDROCODONE/ACETAMINOPHEN 5-325 MG TABLET PO PRN ×4 (00:30→23:42)
[2018-11-06] MEDS: SODIUM CHLORIDE 0.9% 1,000 ML IV SCH ×2 (00:36→12:47)
[2018-11-06] MEDS: DiphenhydrAMINE HCL 25 MG CAPSULE PO PRN ×3 (01:15→19:57)
[2018-11-06] MEDS: ACETAMINOPHEN 325 MG TABLET PO PRN (04:47)
[2018-11-06 06:28] LABS: BASOPHILS % (AUTO) 0.7 % (0.0-2.0); EOSINOPHILS % (AUTO) 5.7 % (1.0-6.0); HEMATOCRIT 32.8 % (41-53); HEMOGLOBIN 10.8 g/dL (13.5-17.5); LYMPHOCYTES # (AUTO) 2.4 K/uL (1.0-4.8); LYMPHOCYTES % (AUTO) 14.9 % (22.0-44.0); MEAN CORPUSCULAR HEMOGLOBIN 30.4 pg (26.0-34.0); MEAN CORPUSCULAR VOLUME 92 fL (80-100); MONOCYTES # (AUTO) 1.1 K/uL (0.1-1.0); MONOCYTES % (AUTO) 7.1 % (2.0-9.0); NEUTROPHILS # (AUTO) 11.3 K/uL (1.8-7.7); NEUTROPHILS % (AUTO) 71.6 % (40.0-70.0); PLATELET COUNT (AUTO) 634 K/uL (150-450); RED BLOOD CELL COUNT(AUTO) 3.56 MIL/uL (4.50-5.90); RED CELL DISTRIBUTION WIDTH 15.9 % (11.5-14.5)
[2018-11-06 07:16] LABS: CALCIUM, TOTAL 7.3 mg/dL (8.8-10.5); CREATININE 1.56 mg/dL (0.60-1.30); POTASSIUM 3.7 mmol/L (3.5-5.1); VANCOMYCIN,RANDOM 16.8 mcg/mL (25.0-50.0)
[2018-11-06] MEDS: THIAMINE HCL 100 MG TABLET PO SCH (08:22)
[2018-11-06] MEDS: FOLIC ACID 1 MG TABLET PO SCH (08:22)
[2018-11-06] MEDS: ChlordiazePOXIDE HCL 10 MG CAPSULE PO SCH ×3 (08:22→19:57)
[2018-11-06] MEDS: MULTIVITAMINS, THERAPEUTIC TABLET PO SCH (08:22)
[2018-11-06] MEDS: PANTOPRAZOLE SODIUM 40 MG/VIAL IVP SCH (08:22)
[2018-11-06] MEDS: VANCOMYCIN HCL 750 MG in DEXTROSE 5%-WATER 250 ML IV SCH ×2 (08:22→19:57)
[2018-11-06] MEDS: DOCUSATE SODIUM 100 MG CAPSULE PO SCH ×2 (08:22→19:57)
[2018-11-07] MEDS: SODIUM CHLORIDE 0.9% 1,000 ML IV SCH ×2 (02:30→09:42)
[2018-11-07 04:06] VITALS: BP 127/85
[2018-11-07] MEDS: DiphenhydrAMINE HCL 25 MG CAPSULE PO PRN ×2 (05:23→21:26)
[2018-11-07] MEDS: PIPERACILLIN/TAZO 3.375 GM/D5W 50 ML IV SCH ×3 (05:23→18:10)
[2018-11-07] MEDS: HYDROCODONE/ACETAMINOPHEN 5-325 MG TABLET PO PRN ×3 (05:23→21:22)
[2018-11-07 06:27] LABS: BASOPHILS % (AUTO) 0.9 % (0.0-2.0); EOSINOPHILS % (AUTO) 4.9 % (1.0-6.0); HEMATOCRIT 33.4 % (41-53); HEMOGLOBIN 11.3 g/dL (13.5-17.5); LYMPHOCYTES # (AUTO) 2.1 K/uL (1.0-4.8); LYMPHOCYTES % (AUTO) 12.9 % (22.0-44.0); MEAN CORPUSCULAR HEMOGLOBIN 30.9 pg (26.0-34.0); MEAN CORPUSCULAR HGB CONC 33.9 G/dL (31.0-37.0); MEAN CORPUSCULAR VOLUME 91 fL (80-100); MONOCYTES # (AUTO) 1.3 K/uL (0.1-1.0); NEUTROPHILS # (AUTO) 11.7 K/uL (1.8-7.7); NEUTROPHILS % (AUTO) 73.3 % (40.0-70.0); PLATELET COUNT (AUTO) 669 K/uL (150-450); RED BLOOD CELL COUNT(AUTO) 3.66 MIL/uL (4.50-5.90); RED CELL DISTRIBUTION WIDTH 15.5 % (11.5-14.5)
[2018-11-07 06:31] LABS: CREATININE 1.29 mg/dL (0.60-1.30); POTASSIUM 3.5 mmol/L (3.5-5.1)
[2018-11-07 07:42] VITALS: BP 128/80
[2018-11-07] MEDS: VANCOMYCIN HCL 750 MG in DEXTROSE 5%-WATER 250 ML IV SCH ×2 (09:40→20:08)
[2018-11-07] MEDS: MULTIVITAMINS, THERAPEUTIC TABLET PO SCH (09:41)
[2018-11-07] MEDS: DOCUSATE SODIUM 100 MG CAPSULE PO SCH ×2 (09:41→20:08)
[2018-11-07] MEDS: HEPARIN SODIUM,PORCINE 5,000 UNITS/ML VIAL SQ SCH ×2 (09:41→16:10)
[2018-11-07] MEDS: PANTOPRAZOLE SODIUM 40 MG/VIAL IVP SCH (09:41)
[2018-11-07] MEDS: FOLIC ACID 1 MG TABLET PO SCH (09:42)
[2018-11-07] MEDS: ChlordiazePOXIDE HCL 10 MG CAPSULE PO SCH ×3 (09:42→20:08)
[2018-11-07] MEDS: THIAMINE HCL 100 MG TABLET PO SCH (09:42)
[2018-11-07 12:09] VITALS: BP 130/87
[2018-11-07 15:52] VITALS: BP 153/76
[2018-11-07 19:48] VITALS: BP 128/83
[2018-11-07 23:45] VITALS: BP 123/81
[2018-11-08] MEDS: PIPERACILLIN/TAZO 3.375 GM/D5W 50 ML IV SCH ×3 (00:05→12:31)
[2018-11-08] MEDS: HEPARIN SODIUM,PORCINE 5,000 UNITS/ML VIAL SQ SCH ×3 (00:06→16:18)
[2018-11-08 03:45] VITALS: BP 121/85
[2018-11-08] MEDS: HYDROCODONE/ACETAMINOPHEN 5-325 MG TABLET PO PRN ×2 (04:09→20:15)
[2018-11-08] MEDS: SODIUM CHLORIDE 0.9% 1,000 ML IV SCH ×2 (04:42→18:12)
[2018-11-08] MEDS: DiphenhydrAMINE HCL 25 MG CAPSULE PO PRN ×2 (06:11→23:46)
[2018-11-08 06:29] LABS: BASOPHILS % (AUTO) 0.8 % (0.0-2.0); EOSINOPHILS % (AUTO) 4.5 % (1.0-6.0); HEMATOCRIT 35.6 % (41-53); HEMOGLOBIN 11.6 g/dL (13.5-17.5); LYMPHOCYTES # (AUTO) 2.7 K/uL (1.0-4.8); LYMPHOCYTES % (AUTO) 16.1 % (22.0-44.0); MEAN CORPUSCULAR HEMOGLOBIN 30.1 pg (26.0-34.0); MEAN CORPUSCULAR HGB CONC 32.5 G/dL (31.0-37.0); MEAN CORPUSCULAR VOLUME 93 fL (80-100); MONOCYTES % (AUTO) 5.6 % (2.0-9.0); NEUTROPHILS # (AUTO) 12.4 K/uL (1.8-7.7); RED BLOOD CELL COUNT(AUTO) 3.85 MIL/uL (4.50-5.90); RED CELL DISTRIBUTION WIDTH 15.9 % (11.5-14.5)
[2018-11-08 06:39] LABS: PLATELET COUNT (AUTO) 700 K/uL (150-450)
[2018-11-08 06:52] LABS: CALCIUM, TOTAL 7.4 mg/dL (8.8-10.5); CREATININE 1.38 mg/dL (0.60-1.30); POTASSIUM 3.5 mmol/L (3.5-5.1); VANCOMYCIN,RANDOM 14.5 mcg/mL (25.0-50.0)
[2018-11-08 07:39] VITALS: BP 132/77
[2018-11-08] MEDS: DOCUSATE SODIUM 100 MG CAPSULE PO SCH ×2 (09:00→20:16)
[2018-11-08] MEDS: VANCOMYCIN HCL 750 MG in DEXTROSE 5%-WATER 250 ML IV SCH ×2 (10:09→20:14)
[2018-11-08] MEDS: MULTIVITAMINS, THERAPEUTIC TABLET PO SCH (10:10)
[2018-11-08] MEDS: ChlordiazePOXIDE HCL 10 MG CAPSULE PO SCH ×3 (10:10→20:15)
[2018-11-08] MEDS: THIAMINE HCL 100 MG TABLET PO SCH (10:10)
[2018-11-08] MEDS: FOLIC ACID 1 MG TABLET PO SCH (10:10)
[2018-11-08] MEDS: PANTOPRAZOLE SODIUM 40 MG/VIAL IVP SCH (10:10)
[2018-11-08 11:25] VITALS: BP 129/71
[2018-11-08] MEDS: MORPHINE SULFATE 4 MG/ML SYRINGE IVP PRN ×3 (12:27→18:00)
[2018-11-08 15:33] VITALS: BP 144/73
[2018-11-08] MEDS ORDERED: FOLI1 PO (15:33)
[2018-11-08] MEDS ORDERED: LIB10 PO ×2 (15:34)
[2018-11-08] MEDS ORDERED: VANC750F IV (15:36)
[2018-11-08] MEDS ORDERED: CEFX1I IV (15:36)
[2018-11-08] MEDS ORDERED: SODIUM CL IRRIG SOLN BOTTLE 250 ML IRRIG ONE (16:29)
[2018-11-08] MEDS: CefTRIAXone SODIUM 2 GM in DEXTROSE 5%-WATER 50 ML IV SCH (18:08)
[2018-11-08 19:25] VITALS: BP 146/86
[2018-11-08 23:20] VITALS: BP 135/84
[2018-11-09] MEDS: HEPARIN SODIUM,PORCINE 5,000 UNITS/ML VIAL SQ SCH ×3 (00:53→16:20)
[2018-11-09 03:19] VITALS: BP 136/86
[2018-11-09] MEDS: HYDROCODONE/ACETAMINOPHEN 5-325 MG TABLET PO PRN ×3 (05:01→14:11)
[2018-11-09 06:23] LABS: BASOPHILS % (AUTO) 1.5 % (0.0-2.0); EOSINOPHILS % (AUTO) 6.1 % (1.0-6.0); HEMATOCRIT 33.6 % (41-53); HEMOGLOBIN 11.2 g/dL (13.5-17.5); LYMPHOCYTES # (AUTO) 2.8 K/uL (1.0-4.8); LYMPHOCYTES % (AUTO) 19.3 % (22.0-44.0); MEAN CORPUSCULAR HEMOGLOBIN 30.9 pg (26.0-34.0); MEAN CORPUSCULAR HGB CONC 33.3 G/dL (31.0-37.0); MEAN CORPUSCULAR VOLUME 93 fL (80-100); MONOCYTES # (AUTO) 1.2 K/uL (0.1-1.0); MONOCYTES % (AUTO) 8.4 % (2.0-9.0); NEUTROPHILS # (AUTO) 9.2 K/uL (1.8-7.7); NEUTROPHILS % (AUTO) 64.7 % (40.0-70.0); PLATELET COUNT (AUTO) 734 K/uL (150-450); RED BLOOD CELL COUNT(AUTO) 3.62 MIL/uL (4.50-5.90); RED CELL DISTRIBUTION WIDTH 15.3 % (11.5-14.5)
[2018-11-09 07:45] VITALS: BP 146/105
[2018-11-09] MEDS: MULTIVITAMINS, THERAPEUTIC TABLET PO SCH (08:49)
[2018-11-09] MEDS: THIAMINE HCL 100 MG TABLET PO SCH (08:49)
[2018-11-09] MEDS: PANTOPRAZOLE SODIUM 40 MG/VIAL IVP SCH (08:49)
[2018-11-09] MEDS: VANCOMYCIN HCL 750 MG in DEXTROSE 5%-WATER 250 ML IV SCH ×2 (08:49→18:18)
[2018-11-09] MEDS: ChlordiazePOXIDE HCL 10 MG CAPSULE PO SCH ×2 (08:49→16:20)
[2018-11-09] MEDS: FOLIC ACID 1 MG TABLET PO SCH (08:49)
[2018-11-09] MEDS: DOCUSATE SODIUM 100 MG CAPSULE PO SCH (08:49)
[2018-11-09 11:29] VITALS: BP 132/90
[2018-11-09] MEDS: CefTRIAXone SODIUM 2 GM in DEXTROSE 5%-WATER 50 ML IV SCH (14:06)
[2018-11-09] MEDS: DiphenhydrAMINE HCL 25 MG CAPSULE PO PRN (14:11)
[2018-11-09 15:40] VITALS: BP 143/103
[2018-11-09] MEDS: ACETAMINOPHEN 325 MG TABLET PO PRN (18:15)
== END 2018-11-09 19:25 | disposition home or self-care (01) | DRG 710 ==
LOC: EMS 18:14 → 5S 10-25 11:33 → 6N 10-28 18:07
PROVIDERS: ADMIT Hospitalist; ATTEND Hospitalist
PROC: 0MB30ZZ Excision of Right Elbow Bursa and Ligament, Open Approach (ICD-10-PCS; 2018-10-30)
PROC: 0J9D0ZZ Drainage of Right Upper Arm Subcutaneous Tissue and Fascia, Open Approach (ICD-10-PCS; principal; 2018-10-30 13:00)
PROC: 05HY33Z Insertion of Infusion Device into Upper Vein, Percutaneous Approach (ICD-10-PCS; 2018-11-07)
PROC: B54NZZA Ultrasonography of Left Upper Extremity Veins, Guidance (ICD-10-PCS; 2018-11-07)
DX: A41.9 Sepsis, unspecified organism (principal); E44.1 Mild protein-calorie malnutrition; E87.6 Hypokalemia; F10.239 Alcohol dependence with withdrawal, unspecified; L03.113 Cellulitis of right upper limb; L02.413 Cutaneous abscess of right upper limb; M71.121 Other infective bursitis, right elbow; W18.39XA Other fall on same level, initial encounter; Y93.89 Activity, other specified; Y92.89 Other specified places as the place of occurrence of the external cause; Y99.8 Other external cause status; Z68.23 Body mass index [BMI] 23.0-23.9, adult
CPT/HCPCS: 36245; 73201; 73218; 73220; 76937; 83605; 83735; 84132; 84145; 84443; 87070; 87086; 87324; 87449; 96365; 96366; 96367; 96368; 96375; A9585; C9113; G0378; G0480; J0131; J0696; J1100; J1644; J2060; J2250; J2270; J2543; J2704; J3010; J3370; J3411; J3475; J3480; J3490; J7030; J7050; J7060; J7120

== ENCOUNTER 2018-12-22 12:35 | Inpatient (IN) | payer OTHER ==
[~2018-12-22] VITALS: Ht 170.2 cm; Wt 68.9 kg
[~2018-12-22 12:35] MED LIST: DIPH25 PO; DSS100 PO; LEVO250 PO; MULT-1239 PO; OXYC-38 PO; PANT40TA25 PO; PERCT PO; PIPE3.3719 IV; VANC750P8 IVPB
[2018-12-22 13:36] LABS: BASOPHILS % (AUTO) 0.5 % (0.0-2.0); EOSINOPHILS % (AUTO) 3.4 % (1.0-6.0); HEMATOCRIT 36.7 % (41-53); LYMPHOCYTES % (AUTO) 9.6 % (22.0-44.0); MEAN CORPUSCULAR HGB CONC 32.8 G/dL (31.0-37.0); MEAN CORPUSCULAR VOLUME 88 fL (80-100); MONOCYTES # (AUTO) 0.6 K/uL (0.1-1.0); MONOCYTES % (AUTO) 6.3 % (2.0-9.0); NEUTROPHILS # (AUTO) 8.1 K/uL (1.8-7.7); NEUTROPHILS % (AUTO) 80.2 % (40.0-70.0); PLATELET COUNT (AUTO) 317 K/uL (150-450); RED BLOOD CELL COUNT(AUTO) 4.15 MIL/uL (4.50-5.90); RED CELL DISTRIBUTION WIDTH 14.8 % (11.5-14.5)
[2018-12-22] MEDS ORDERED: HYDROCODONE/ACETAMINOPHEN 5-325 MG TABLET PO ONE (14:00)
[2018-12-22 14:24] LABS: ANION GAP 15 mmol/L (8-16); CALCIUM, TOTAL 8.5 mg/dL (8.8-10.5); CARBON DIOXIDE 21 mmol/L (22-29); CHLORIDE 100 mmol/L (98-107); CREATININE 0.69 mg/dL (0.60-1.30); GLOMERULAR FILTR. RATE CALC > 60 mL/min (>60); GLUCOSE,RANDOM 96 mg/dL (70-110); POTASSIUM 3.8 mmol/L (3.5-5.1); SODIUM SERUM 136 mmol/L (136-145); UREA NITROGEN, BLOOD 7 mg/dL (7-18)
[2018-12-22 14:30] LABS: ALANINE AMINOTRANSFERASE 30 U/L (12-78); ALBUMIN 3.2 g/dL (3.4-5.0); ALKALINE PHOSPHATASE 257 U/L (46-116); ASPARTATE AMINOTRANSFERASE 44 U/L (15-37); BILIRUBIN,TOTAL 0.7 mg/dL (0.1-1.0); TOTAL PROTEIN, SERUM 7.9 g/dL (6.4-8.2)
[2018-12-22 14:36] LABS: ERYTHROCYTE SEDIMENTATION RATE 30 MM/HR (0-15)
[2018-12-22] MEDS ORDERED: LIDOCAINE 2% 5 ML JELLY TP ONE (15:00)
[2018-12-22 15:25] LABS: APPEARANCE,URINE CLEAR (CLEAR); BILIRUBIN,URINE NEGATIVE (NEGATIVE); GLUCOSE, URINE (UA) NEGATIVE (NEGATIVE); KETONES,URINE NEGATIVE (NEGATIVE); LEUKOCYTE ESTERASE ,URINE NEGATIVE (NEGATIVE); NITRATE,URINE NEGATIVE (NEGATIVE); OCCULT BLOOD,URINE TRACE (NEGATIVE); PH,URINE 6.5 (5.0-8.0); PROTEIN,URINE NEGATIVE (NEGATIVE); UROBILINOGEN,URINE 0.2 mg/dL (<=1.0)
[2018-12-22 15:30] LABS: BACTERIA,URINE None Seen /HPF (None Seen); RBC,URINE 0-2 /HPF (0-2); SQUAMOUS EPITHELIAL CELL,UR Rare /LPF (None Seen)
[2018-12-22 16:04] LABS: AMPHET/METH SCREEN,URINE NEGATIVE (NEGATIVE); BARBITURATE SCREEN, URINE NEGATIVE (NEGATIVE); BENZODIAZEPINES SCREEN,URINE NEGATIVE (NEGATIVE); CANNABINOID SCREEN,URINE NEGATIVE (NEGATIVE); COCAINE SCREEN,URINE NEGATIVE (NEGATIVE); METHADONE SCREEN, URINE NEGATIVE (NEGATIVE); OPIATE SCREEN,URINE NEGATIVE (NEGATIVE)
[2018-12-22 16:06] LABS: PHENCYCLIDINE SCREEN,URINE NEGATIVE (NEGATIVE)
[2018-12-22] MEDS ORDERED: DIAZEPAM 5 MG TABLET PO ONE (16:15)
[2018-12-22] MEDS ORDERED: VANCOMYCIN HCL 1 GM/D5% WATER 200 ML IV ONE (17:15)
[2018-12-22] MEDS ORDERED: LEVOFLOXACIN 500 MG TABLET PO ONE (17:15)
[2018-12-22] MEDS ORDERED: PIPERACILLIN/TAZO 3.375 GM/D5W 50 ML IV ONE (17:15)
[2018-12-22 18:42] VITALS: BP 138/92
[2018-12-22 20:25] VITALS: BP 146/105
[2018-12-22] MEDS ORDERED: DiphenhydrAMINE HCL 25 MG CAPSULE PO PRN (23:30)
[2018-12-22] MEDS ORDERED: OxyCODONE HCL/ACETAMINOPHEN 5-325 MG TABLET PO PRN (23:30)
[2018-12-22] MEDS ORDERED: ONDANSETRON HCL 4 MG/2 ML VIAL IVP PRN (23:30)
[2018-12-22] MEDS ORDERED: ALBUTEROL SULFATE 2.5 MG/0.5 ML NEB SOLUTION NEB PRN (23:30)
[2018-12-22] MEDS ORDERED: MAGNESIUM HYDROXIDE SUSPENSION 30 ML UDCUP PO PRN (23:30)
[2018-12-22] MEDS ORDERED: BISACODYL 10 MG RECTAL RECTAL SUPPOSITORY PR PRN (23:30)
[2018-12-22] MEDS ORDERED: ACETAMINOPHEN 325 MG TABLET PO PRN (23:30)
[2018-12-22] MEDS ORDERED: IPRATROPIUM BROMIDE 0.5 MG/2.5 ML NEB SOLUTION NEB PRN (23:30)
[2018-12-22] MEDS ORDERED: MORPHINE SULFATE 2 MG/ML SYRINGE IVP PRN (23:30)
[2018-12-23] VITALS (7 sets, daily range): BP systolic 129–149; BP diastolic 68–90
[2018-12-23] MEDS ORDERED: PIPERACILLIN SODIUM/TAZOBACTAM 3.375 GM/VIAL IV SCH
[2018-12-23] MEDS: HYDROCODONE/ACETAMINOPHEN 5-325 MG TABLET PO PRN ×4 (00:10→19:53)
[2018-12-23] MEDS: HEPARIN SODIUM,PORCINE 5,000 UNITS/ML VIAL SQ SCH ×6 (00:10→23:45)
[2018-12-23] MEDS ORDERED: SODIUM CHLORIDE 0.9% 500 ML IV ONE (00:18)
[2018-12-23] MEDS: PIPERACILLIN/TAZO 3.375 GM/D5W 50 ML IV SCH ×5 (00:26→23:05)
[2018-12-23] MEDS: VANCOMYCIN HCL 1.25 GM in DEXTROSE 5%-WATER 250 ML IV SCH ×4 (00:51→23:49)
[2018-12-23] MEDS: ChlordiazePOXIDE HCL 25 MG CAPSULE PO SCH ×5 (00:51→23:05)
[2018-12-23 06:32] LABS: ALANINE AMINOTRANSFERASE 24 U/L (12-78); ALBUMIN 2.4 g/dL (3.4-5.0); ALKALINE PHOSPHATASE 209 U/L (46-116); ANION GAP 9 mmol/L (8-16); ASPARTATE AMINOTRANSFERASE 33 U/L (15-37); BILIRUBIN,TOTAL 0.9 mg/dL (0.1-1.0); CALCIUM, TOTAL 8.4 mg/dL (8.8-10.5); CARBON DIOXIDE 24 mmol/L (22-29); CHLORIDE 103 mmol/L (98-107); CREATININE 0.68 mg/dL (0.60-1.30); GLOMERULAR FILTR. RATE CALC > 60 mL/min (>60); GLUCOSE,RANDOM 87 mg/dL (70-110); POTASSIUM 3.3 mmol/L (3.5-5.1); SODIUM SERUM 136 mmol/L (136-145); TOTAL PROTEIN, SERUM 7.1 g/dL (6.4-8.2); UREA NITROGEN, BLOOD 7 mg/dL (7-18)
[2018-12-23] MEDS: MULTIVITAMINS WITH MINERALS, THERAPEUTIC TABLET PO SCH (07:54)
[2018-12-23] MEDS: LEVOFLOXACIN 250 MG TABLET PO SCH (07:54)
[2018-12-23] MEDS: PANTOPRAZOLE SODIUM 40 MG DR TABLET PO SCH (07:54)
[2018-12-23] MEDS: DOCUSATE SODIUM 100 MG CAPSULE PO SCH ×2 (07:54→19:54)
[2018-12-23] MEDS ORDERED: PANTOPRAZOLE SODIUM 40 MG/VIAL IVP SCH (09:00)
[2018-12-23] MEDS ORDERED: DOCUSATE SODIUM 100 MG CAPSULE PO SCH (09:00)
[2018-12-23] MEDS: MORPHINE SULFATE 4 MG/ML SYRINGE IVP PRN (10:41)
[2018-12-23] MEDS ORDERED: SODIUM CHLORIDE 0.9% IRRIG BTL 1,000 ML IRRIG ONE (10:46)
[2018-12-23] MEDS ORDERED: POTASSIUM CHLORIDE 20 MEQ ER TABLET PO ONE (13:30)
[2018-12-23] MEDS: ZOLPIDEM TARTRATE 5 MG TABLET PO PRN (23:05)
[2018-12-24 04:22] VITALS: BP 139/83
[2018-12-24] MEDS: PIPERACILLIN/TAZO 3.375 GM/D5W 50 ML IV SCH ×4 (05:20→23:05)
[2018-12-24] MEDS: ChlordiazePOXIDE HCL 25 MG CAPSULE PO SCH ×4 (05:21→23:05)
[2018-12-24 07:22] VITALS: BP 123/94
[2018-12-24 07:52] LABS: ALANINE AMINOTRANSFERASE 19 U/L (12-78); ALBUMIN 2.3 g/dL (3.4-5.0); ALKALINE PHOSPHATASE 160 U/L (46-116); ANION GAP 9 mmol/L (8-16); ASPARTATE AMINOTRANSFERASE 26 U/L (15-37); BILIRUBIN,TOTAL 0.4 mg/dL (0.1-1.0); CALCIUM, TOTAL 8.4 mg/dL (8.8-10.5); CARBON DIOXIDE 23 mmol/L (22-29); CHLORIDE 104 mmol/L (98-107); CREATININE 0.75 mg/dL (0.60-1.30); GLOMERULAR FILTR. RATE CALC > 60 mL/min (>60); GLUCOSE,RANDOM 93 mg/dL (70-110); POTASSIUM 3.5 mmol/L (3.5-5.1); SODIUM SERUM 136 mmol/L (136-145); TOTAL PROTEIN, SERUM 6.6 g/dL (6.4-8.2); UREA NITROGEN, BLOOD 6 mg/dL (7-18)
[2018-12-24] MEDS ORDERED: LIDOCAINE 1% 10 ML VIAL INJ ONE (09:15)
[2018-12-24] MEDS ORDERED: VANCOMYCIN HCL 1 GM/D5% WATER 200 ML IV ONE (09:30)
[2018-12-24] MEDS: PANTOPRAZOLE SODIUM 40 MG DR TABLET PO SCH (10:31)
[2018-12-24] MEDS: LEVOFLOXACIN 250 MG TABLET PO SCH (10:31)
[2018-12-24] MEDS: DOCUSATE SODIUM 100 MG CAPSULE PO SCH ×2 (10:31→20:54)
[2018-12-24] MEDS: MULTIVITAMINS WITH MINERALS, THERAPEUTIC TABLET PO SCH (10:32)
[2018-12-24] MEDS: HEPARIN SODIUM,PORCINE 5,000 UNITS/ML VIAL SQ SCH ×3 (10:32→23:05)
[2018-12-24] MEDS: HYDROCODONE/ACETAMINOPHEN 5-325 MG TABLET PO PRN ×2 (11:10→18:27)
[2018-12-24 11:18] VITALS: BP 156/75
[2018-12-24 15:31] VITALS: BP 127/79
[2018-12-24] MEDS: VANCOMYCIN HCL 1 GM/D5% WATER 200 ML IV SCH ×2 (16:46→23:54)
[2018-12-24 19:30] VITALS: BP 141/70
[2018-12-24] MEDS: ZOLPIDEM TARTRATE 5 MG TABLET PO PRN (20:53)
[2018-12-24 23:30] VITALS: BP 132/74
[2018-12-25] MEDS: PIPERACILLIN/TAZO 3.375 GM/D5W 50 ML IV SCH ×3 (05:20→17:50)
[2018-12-25] MEDS: ChlordiazePOXIDE HCL 25 MG CAPSULE PO SCH ×4 (06:06→23:57)
[2018-12-25 06:31] LABS: PROTHROMBIN TIME 10.4 SEC (9.4-11.6)
[2018-12-25 06:44] LABS: ALANINE AMINOTRANSFERASE 18 U/L (12-78); ALBUMIN 2.3 g/dL (3.4-5.0); ALKALINE PHOSPHATASE 139 U/L (46-116); ANION GAP 9 mmol/L (8-16); ASPARTATE AMINOTRANSFERASE 19 U/L (15-37); BILIRUBIN,TOTAL 0.3 mg/dL (0.1-1.0); CALCIUM, TOTAL 8.5 mg/dL (8.8-10.5); CARBON DIOXIDE 23 mmol/L (22-29); CHLORIDE 105 mmol/L (98-107); CREATININE 0.86 mg/dL (0.60-1.30); GLOMERULAR FILTR. RATE CALC > 60 mL/min (>60); GLUCOSE,RANDOM 91 mg/dL (70-110); POTASSIUM 3.5 mmol/L (3.5-5.1); SODIUM SERUM 137 mmol/L (136-145); TOTAL PROTEIN, SERUM 6.5 g/dL (6.4-8.2); UREA NITROGEN, BLOOD 5 mg/dL (7-18)
[2018-12-25] MEDS: DOCUSATE SODIUM 100 MG CAPSULE PO SCH ×2 (08:30→21:00)
[2018-12-25] MEDS: VANCOMYCIN HCL 1 GM/D5% WATER 200 ML IV SCH ×3 (08:31→23:05)
[2018-12-25] MEDS: MULTIVITAMINS WITH MINERALS, THERAPEUTIC TABLET PO SCH (08:32)
[2018-12-25] MEDS: HEPARIN SODIUM,PORCINE 5,000 UNITS/ML VIAL SQ SCH ×3 (08:32→23:57)
[2018-12-25] MEDS: PANTOPRAZOLE SODIUM 40 MG DR TABLET PO SCH (08:32)
[2018-12-25] MEDS: LEVOFLOXACIN 250 MG TABLET PO SCH (08:36)
[2018-12-25] MEDS: HYDROCODONE/ACETAMINOPHEN 5-325 MG TABLET PO PRN (08:41)
[2018-12-25 11:35] VITALS: BP 129/80
[2018-12-25] MEDS ORDERED: HEPARIN SODIUM 1000 UNITS/NS 500 ML ONE (14:20)
[2018-12-25 16:00] VITALS: BP 157/109
[2018-12-25 16:23] VITALS: BP 137/85
[2018-12-25] MEDS: MORPHINE SULFATE 4 MG/ML SYRINGE IVP PRN (17:50)
[2018-12-25 20:40] VITALS: BP 137/73
[2018-12-25 23:55] VITALS: BP 131/75
[2018-12-26] MEDS: PIPERACILLIN/TAZO 3.375 GM/D5W 50 ML IV SCH ×3 (01:07→11:57)
[2018-12-26 04:32] VITALS: BP 135/71
[2018-12-26] MEDS: ChlordiazePOXIDE HCL 25 MG CAPSULE PO SCH ×2 (06:16→11:57)
[2018-12-26 06:23] LABS: ALBUMIN 2.3 g/dL (3.4-5.0); BILIRUBIN,TOTAL 0.2 mg/dL (0.1-1.0); CALCIUM, TOTAL 8.5 mg/dL (8.8-10.5); CREATININE 1.28 mg/dL (0.60-1.30); POTASSIUM 3.4 mmol/L (3.5-5.1); TOTAL PROTEIN, SERUM 6.6 g/dL (6.4-8.2); VANCOMYCIN,RANDOM 36.5 mcg/mL (25.0-50.0)
[2018-12-26] MEDS ORDERED: VANCOMYCIN HCL 1 GM/D5% WATER 200 ML IV PRN (08:00)
[2018-12-26 08:26] VITALS: BP 132/72
[2018-12-26] MEDS ORDERED: SODIUM CHLORIDE 0.9% 500 ML IV ONE (08:34)
[2018-12-26] MEDS: PANTOPRAZOLE SODIUM 40 MG DR TABLET PO SCH (08:42)
[2018-12-26] MEDS: DOCUSATE SODIUM 100 MG CAPSULE PO SCH (08:42)
[2018-12-26] MEDS: HEPARIN SODIUM,PORCINE 5,000 UNITS/ML VIAL SQ SCH (08:42)
[2018-12-26] MEDS: MULTIVITAMINS WITH MINERALS, THERAPEUTIC TABLET PO SCH (08:42)
[2018-12-26] MEDS: LEVOFLOXACIN 250 MG TABLET PO SCH (08:42)
[2018-12-26 11:30] VITALS: BP 138/76
[2018-12-26] MEDS ORDERED: POTASSIUM CHLORIDE 20 MEQ ER TABLET PO ONE (11:30)
== END 2018-12-26 15:00 | disposition home or self-care (01) | DRG 344 ==
LOC: EMS 12:36 → 5N 17:48 → 6N 12-24 16:00
PROVIDERS: ADMIT Hospitalist; ATTEND Hospitalist
PROC: 0HDDXZZ Extraction of Right Lower Arm Skin, External Approach (ICD-10-PCS; 2018-12-24)
PROC: 05HY33Z Insertion of Infusion Device into Upper Vein, Percutaneous Approach (ICD-10-PCS; principal; 2018-12-25)
PROC: B54NZZA Ultrasonography of Left Upper Extremity Veins, Guidance (ICD-10-PCS; 2018-12-25)
DX: M86.9 Osteomyelitis, unspecified (principal); F10.10 Alcohol abuse, uncomplicated; L03.113 Cellulitis of right upper limb; Z91.19 Patient's noncompliance with other medical treatment and regimen
CPT/HCPCS: 36569; 76000; 76937; 85651; 87081; 96365; 96367; G0378; J1644; J2270; J2543; J3370; J3490; J7040; J7060

== ENCOUNTER 2019-01-08 22:32 | Inpatient (IN) | payer OTHER ==
[~2019-01-08] VITALS: Ht 170.2 cm; Wt 67.8 kg
[2019-01-09] MEDS ORDERED: VANCOMYCIN HCL 1 GM/D5% WATER 200 ML IV ONE (00:30)
[2019-01-09] MEDS ORDERED: SODIUM CHLORIDE 0.9% 1,000 ML IV ONE (01:15)
[2019-01-09 01:39] LABS: BASOPHILS % (AUTO) 1.7 % (0.0-2.0); EOSINOPHILS % (AUTO) 4.4 % (1.0-6.0); HEMATOCRIT 39.1 % (41-53); HEMOGLOBIN 12.9 g/dL (13.5-17.5); LYMPHOCYTES # (AUTO) 3.1 K/uL (1.0-4.8); LYMPHOCYTES % (AUTO) 33.9 % (22.0-44.0); MEAN CORPUSCULAR HEMOGLOBIN 28.7 pg (26.0-34.0); MEAN CORPUSCULAR HGB CONC 32.9 G/dL (31.0-37.0); MEAN CORPUSCULAR VOLUME 87 fL (80-100); MONOCYTES # (AUTO) 0.4 K/uL (0.1-1.0); MONOCYTES % (AUTO) 4.8 % (2.0-9.0); NEUTROPHILS % (AUTO) 55.2 % (40.0-70.0); PLATELET COUNT (AUTO) 737 K/uL (150-450); RED BLOOD CELL COUNT(AUTO) 4.48 MIL/uL (4.50-5.90); RED CELL DISTRIBUTION WIDTH 16.4 % (11.5-14.5)
[2019-01-09 01:49] LABS: ANION GAP 8 mmol/L (8-16); CALCIUM, TOTAL 7.5 mg/dL (8.8-10.5); CARBON DIOXIDE 29 mmol/L (22-29); CHLORIDE 104 mmol/L (98-107); GLOMERULAR FILTR. RATE CALC > 60 mL/min (>60); GLUCOSE,RANDOM 100 mg/dL (70-110); POTASSIUM 3.6 mmol/L (3.5-5.1); SODIUM SERUM 141 mmol/L (136-145); UREA NITROGEN, BLOOD 13 mg/dL (7-18)
[2019-01-09 01:55] LABS: ALANINE AMINOTRANSFERASE 24 U/L (12-78); ALBUMIN 2.8 g/dL (3.4-5.0); ALKALINE PHOSPHATASE 131 U/L (46-116); ASPARTATE AMINOTRANSFERASE 38 U/L (15-37); BILIRUBIN,TOTAL 0.1 mg/dL (0.1-1.0); C-REACTIVE PROTEIN QUANT 0.71 mg/dL (0.00-0.30); TOTAL PROTEIN, SERUM 7.7 g/dL (6.4-8.2)
[2019-01-09 02:46] LABS: ERYTHROCYTE SEDIMENTATION RATE 54 MM/HR (0-15)
[2019-01-09] MEDS ORDERED: MORPHINE SULFATE 2 MG/ML SYRINGE IVP PRN (04:30)
[2019-01-09] MEDS ORDERED: 0.9% SODIUM CHLORIDE 10 ML SYRINGE IVP PRN (04:30)
[2019-01-09] MEDS ORDERED: ACETAMINOPHEN 325 MG TABLET PO PRN ×2 (04:30→08:45)
[2019-01-09] MEDS ORDERED: ONDANSETRON HCL 4 MG/2 ML VIAL IVP PRN ×2 (04:30→08:45)
[2019-01-09] MEDS: HYDROCODONE/ACETAMINOPHEN 5-325 MG TABLET PO PRN ×2 (05:15→08:49)
[2019-01-09 05:35] VITALS: BP 154/99
[2019-01-09 08:09] VITALS: BP 151/87
[2019-01-09] MEDS ORDERED: OxyCODONE HCL/ACETAMINOPHEN 5-325 MG TABLET PO PRN (08:45)
[2019-01-09] MEDS ORDERED: ALBUTEROL SULFATE 2.5 MG/0.5 ML NEB SOLUTION NEB PRN (08:45)
[2019-01-09] MEDS ORDERED: MAGNESIUM HYDROXIDE SUSPENSION 30 ML UDCUP PO PRN (08:45)
[2019-01-09] MEDS: DOCUSATE SODIUM 100 MG CAPSULE PO SCH ×2 (09:00→21:26)
[2019-01-09] MEDS: ChlordiazePOXIDE HCL 10 MG CAPSULE PO SCH ×2 (09:32→16:34)
[2019-01-09] MEDS: MULTIVITAMINS WITH MINERALS, THERAPEUTIC TABLET PO SCH (09:32)
[2019-01-09] MEDS: FAMOTIDINE 20 MG TABLET PO SCH ×2 (09:32→21:26)
[2019-01-09 10:33] LABS: AMPHET/METH SCREEN,URINE NEGATIVE (NEGATIVE); BARBITURATE SCREEN, URINE NEGATIVE (NEGATIVE); BENZODIAZEPINES SCREEN,URINE NEGATIVE (NEGATIVE); CANNABINOID SCREEN,URINE NEGATIVE (NEGATIVE); COCAINE SCREEN,URINE NEGATIVE (NEGATIVE); METHADONE SCREEN, URINE NEGATIVE (NEGATIVE); OPIATE SCREEN,URINE POSITIVE (NEGATIVE)
[2019-01-09 10:42] LABS: PHENCYCLIDINE SCREEN,URINE NEGATIVE (NEGATIVE)
[2019-01-09 12:54] VITALS: BP 152/82
[2019-01-09] MEDS: OxyCODONE HCL/ACETAMINOPHEN 5-325 MG TABLET PO PRN ×2 (13:09→18:39)
[2019-01-09] MEDS: LORazepam 2 MG/ML VIAL IVP PRN ×2 (13:23→21:26)
[2019-01-09 15:41] VITALS: BP 156/83
[2019-01-09 20:51] VITALS: BP 186/98
[2019-01-10] MEDS: ChlordiazePOXIDE HCL 10 MG CAPSULE PO SCH ×3 (00:14→15:48)
[2019-01-10] MEDS: OxyCODONE HCL/ACETAMINOPHEN 5-325 MG TABLET PO PRN ×5 (00:14→21:54)
[2019-01-10 00:35] VITALS: BP 158/90
[2019-01-10 05:35] VITALS: BP 149/97
[2019-01-10 06:20] LABS: MAGNESIUM 1.3 mg/dL (1.80-2.40); PHOSPHORUS 3.9 mg/dL (2.5-4.9)
[2019-01-10 07:15] VITALS: BP 157/97
[2019-01-10] MEDS: FOLIC ACID 1 MG TABLET PO SCH (09:03)
[2019-01-10] MEDS: MULTIVITAMINS WITH MINERALS, THERAPEUTIC TABLET PO SCH (09:03)
[2019-01-10] MEDS: THIAMINE HCL 100 MG TABLET PO SCH (09:03)
[2019-01-10] MEDS: VANCOMYCIN HCL 1 GM/D5% WATER 200 ML IV SCH ×2 (09:03→15:48)
[2019-01-10] MEDS: FAMOTIDINE 20 MG TABLET PO SCH ×2 (09:03→21:54)
[2019-01-10] MEDS: DOCUSATE SODIUM 100 MG CAPSULE PO SCH ×2 (09:03→21:55)
[2019-01-10] MEDS ORDERED: SODIUM CHLORIDE 0.9% 500 ML IV ONE (09:06)
[2019-01-10] MEDS: LORazepam 2 MG/ML VIAL IVP PRN (09:09)
[2019-01-10] MEDS ORDERED: MAGNESIUM SULFATE 4 GM/WATER 100 ML IV PRN (10:15)
[2019-01-10] MEDS ORDERED: MAGNESIUM OXIDE 400 MG TABLET PO PRN (10:15)
[2019-01-10] MEDS ORDERED: MAGNESIUM SULFATE 2 GM/WATER 50 ML IV PRN (10:15)
[2019-01-10 11:06] LABS: ALBUMIN 2.7 g/dL (3.4-5.0)
[2019-01-10 11:20] VITALS: BP 153/99
[2019-01-10 15:10] VITALS: BP 154/108
[2019-01-10] MEDS: LORazepam 2 MG TABLET PO PRN (18:15)
[2019-01-10 20:01] VITALS: BP 145/88
[2019-01-11] MEDS: LORazepam 2 MG TABLET PO PRN ×3 (00:33→20:19)
[2019-01-11] MEDS: ChlordiazePOXIDE HCL 10 MG CAPSULE PO SCH ×2 (00:33→07:51)
[2019-01-11] MEDS: VANCOMYCIN HCL 1 GM/D5% WATER 200 ML IV SCH ×4 (00:33→23:17)
[2019-01-11 00:41] VITALS: BP 142/98
[2019-01-11 04:09] VITALS: BP 131/88
[2019-01-11 07:04] LABS: ANION GAP 9 mmol/L (8-16); CALCIUM, TOTAL 8.7 mg/dL (8.8-10.5); CARBON DIOXIDE 25 mmol/L (22-29); CHLORIDE 102 mmol/L (98-107); CREATININE 0.86 mg/dL (0.60-1.30); GLOMERULAR FILTR. RATE CALC > 60 mL/min (>60); GLUCOSE,RANDOM 85 mg/dL (70-110); POTASSIUM 3.7 mmol/L (3.5-5.1); SODIUM SERUM 136 mmol/L (136-145); UREA NITROGEN, BLOOD 9 mg/dL (7-18); VANCOMYCIN,RANDOM 31.9 mcg/mL (25.0-50.0)
[2019-01-11] MEDS: FOLIC ACID 1 MG TABLET PO SCH (07:51)
[2019-01-11] MEDS: FAMOTIDINE 20 MG TABLET PO SCH ×2 (07:51→19:57)
[2019-01-11] MEDS: MULTIVITAMINS WITH MINERALS, THERAPEUTIC TABLET PO SCH (07:51)
[2019-01-11] MEDS: THIAMINE HCL 100 MG TABLET PO SCH (07:52)
[2019-01-11] MEDS: DOCUSATE SODIUM 100 MG CAPSULE PO SCH ×2 (07:52→19:57)
[2019-01-11 07:56] VITALS: BP 148/97
[2019-01-11] MEDS: OxyCODONE HCL/ACETAMINOPHEN 5-325 MG TABLET PO PRN ×2 (11:36→20:18)
[2019-01-11 16:18] VITALS: BP 142/93
[2019-01-11 20:10] VITALS: BP 146/97
[2019-01-11 23:37] VITALS: BP 141/96
[2019-01-12 05:04] VITALS: BP 136/87
[2019-01-12 06:41] LABS: ANION GAP 9 mmol/L (8-16); CALCIUM, TOTAL 8.4 mg/dL (8.8-10.5); CARBON DIOXIDE 23 mmol/L (22-29); CHLORIDE 102 mmol/L (98-107); CREATININE 0.77 mg/dL (0.60-1.30); GLOMERULAR FILTR. RATE CALC > 60 mL/min (>60); GLUCOSE,RANDOM 84 mg/dL (70-110); POTASSIUM 3.9 mmol/L (3.5-5.1); SODIUM SERUM 134 mmol/L (136-145); UREA NITROGEN, BLOOD 11 mg/dL (7-18)
[2019-01-12 07:40] VITALS: BP 137/85
[2019-01-12] MEDS: VANCOMYCIN HCL 1 GM/D5% WATER 200 ML IV SCH ×3 (08:50→23:56)
[2019-01-12] MEDS: MULTIVITAMINS WITH MINERALS, THERAPEUTIC TABLET PO SCH (08:51)
[2019-01-12] MEDS: FAMOTIDINE 20 MG TABLET PO SCH ×2 (08:51→19:45)
[2019-01-12] MEDS: LORazepam 2 MG TABLET PO PRN ×2 (08:51→19:44)
[2019-01-12] MEDS: DOCUSATE SODIUM 100 MG CAPSULE PO SCH ×2 (08:51→21:00)
[2019-01-12] MEDS: FOLIC ACID 1 MG TABLET PO SCH (08:51)
[2019-01-12] MEDS: THIAMINE HCL 100 MG TABLET PO SCH (08:51)
[2019-01-12] MEDS: OxyCODONE HCL/ACETAMINOPHEN 5-325 MG TABLET PO PRN ×4 (09:21→23:58)
[2019-01-12] MEDS ORDERED: SODIUM CHLORIDE 0.9% IRRIG BTL 1,000 ML IRRIG ONE (11:15)
[2019-01-12 11:49] VITALS: BP 144/89
[2019-01-12 22:57] VITALS: BP 124/85
[2019-01-13] MEDS: LORazepam 2 MG TABLET PO PRN ×2 (04:51→21:01)
[2019-01-13] MEDS: OxyCODONE HCL/ACETAMINOPHEN 5-325 MG TABLET PO PRN ×3 (04:52→21:01)
[2019-01-13 04:54] VITALS: BP 145/96
[2019-01-13 06:21] LABS: ANION GAP 8 mmol/L (8-16); CALCIUM, TOTAL 8.7 mg/dL (8.8-10.5); CARBON DIOXIDE 24 mmol/L (22-29); CHLORIDE 103 mmol/L (98-107); CREATININE 0.86 mg/dL (0.60-1.30); GLOMERULAR FILTR. RATE CALC > 60 mL/min (>60); GLUCOSE,RANDOM 82 mg/dL (70-110); POTASSIUM 4.1 mmol/L (3.5-5.1); SODIUM SERUM 135 mmol/L (136-145); UREA NITROGEN, BLOOD 10 mg/dL (7-18)
[2019-01-13 08:00] VITALS: BP 107/78
[2019-01-13] MEDS: VANCOMYCIN HCL 1 GM/D5% WATER 200 ML IV SCH ×3 (08:01→23:34)
[2019-01-13] MEDS: THIAMINE HCL 100 MG TABLET PO SCH (08:01)
[2019-01-13] MEDS: MULTIVITAMINS WITH MINERALS, THERAPEUTIC TABLET PO SCH (08:01)
[2019-01-13] MEDS: FOLIC ACID 1 MG TABLET PO SCH (08:01)
[2019-01-13] MEDS: FAMOTIDINE 20 MG TABLET PO SCH ×2 (08:01→20:59)
[2019-01-13] MEDS: DOCUSATE SODIUM 100 MG CAPSULE PO SCH ×2 (08:01→20:59)
[2019-01-13 12:07] VITALS: BP 143/100
[2019-01-13 15:48] VITALS: BP 141/98
[2019-01-13 19:53] VITALS: BP 158/100
[2019-01-13 23:30] VITALS: BP 151/88
[2019-01-14 03:30] VITALS: BP 144/87
[2019-01-14] MEDS: LORazepam 2 MG TABLET PO PRN (04:47)
[2019-01-14] MEDS: OxyCODONE HCL/ACETAMINOPHEN 5-325 MG TABLET PO PRN (04:47)
[2019-01-14 07:55] LABS: ANION GAP 9 mmol/L (8-16); CALCIUM, TOTAL 8.6 mg/dL (8.8-10.5); CARBON DIOXIDE 24 mmol/L (22-29); CHLORIDE 102 mmol/L (98-107); CREATININE 0.95 mg/dL (0.60-1.30); GLOMERULAR FILTR. RATE CALC > 60 mL/min (>60); GLUCOSE,RANDOM 97 mg/dL (70-110); SODIUM SERUM 135 mmol/L (136-145); UREA NITROGEN, BLOOD 11 mg/dL (7-18); VANCOMYCIN,RANDOM 32.6 mcg/mL (25.0-50.0)
[2019-01-14 08:04] VITALS: BP 152/99
[2019-01-14] MEDS ORDERED: VANCOMYCIN HCL 750 MG in DEXTROSE 5%-WATER 250 ML IV SCH (08:15)
[2019-01-14] MEDS: MULTIVITAMINS WITH MINERALS, THERAPEUTIC TABLET PO SCH (09:25)
[2019-01-14] MEDS: DOCUSATE SODIUM 100 MG CAPSULE PO SCH (09:25)
[2019-01-14] MEDS: FAMOTIDINE 20 MG TABLET PO SCH (09:25)
[2019-01-14] MEDS: FOLIC ACID 1 MG TABLET PO SCH (09:25)
[2019-01-14] MEDS: THIAMINE HCL 100 MG TABLET PO SCH (09:25)
[2019-01-14] MEDS ORDERED: BACTDSB PO (11:20)
[2019-01-14] MEDS ORDERED: SODIUM CL IRRIG SOLN BOTTLE 250 ML IRRIG ONE (12:22)
== END 2019-01-14 12:40 | disposition home or self-care (01) | DRG 384 ==
LOC: EMS 22:33 → 6N 01-09 02:30
PROVIDERS: ADMIT Internal Medicine; ATTEND Internal Medicine
DX: S51.801A Unspecified open wound of right forearm, initial encounter (principal); E44.0 Moderate protein-calorie malnutrition; E87.1 Hypo-osmolality and hyponatremia; D47.3 Essential (hemorrhagic) thrombocythemia; B95.62 Methicillin resistant Staphylococcus aureus infection as the cause of diseases classified elsewhere; F10.239 Alcohol dependence with withdrawal, unspecified; Z91.19 Patient's noncompliance with other medical treatment and regimen; F17.200 Nicotine dependence, unspecified, uncomplicated; Z68.23 Body mass index [BMI] 23.0-23.9, adult; X58.XXXA Exposure to other specified factors, initial encounter; Y93.89 Activity, other specified; Y92.89 Other specified places as the place of occurrence of the external cause; Y99.8 Other external cause status; Y90.9 Presence of alcohol in blood, level not specified
CPT/HCPCS: 80307; 83735; 84100; 85651; 86140; 87040; 87081; 87205; G0378; J2060; J2405; J3370; J3475; J7030; J7040; J7060

== ENCOUNTER 2019-02-03 23:21 | Emergency (ER) | payer OTHER ==
[~2019-02-03] VITALS: Ht 172.7 cm; Wt 68.2 kg
[~2019-02-03 23:21] MED LIST changes: +BACTDSB PO; -DIPH25 PO; -DSS100 PO; -LEVO250 PO; -OXYC-38 PO; -PANT40TA25 PO; -PERCT PO; -PIPE3.3719 IV; -VANC750P8 IVPB
[2019-02-04 00:01] LABS: BASOPHILS % (AUTO) 1.1 % (0.0-2.0); EOSINOPHILS % (AUTO) 6.3 % (1.0-6.0); HEMATOCRIT 41.7 % (41-53); HEMOGLOBIN 13.8 g/dL (13.5-17.5); LYMPHOCYTES % (AUTO) 23.4 % (22.0-44.0); MEAN CORPUSCULAR HEMOGLOBIN 28.4 pg (26.0-34.0); MEAN CORPUSCULAR HGB CONC 33.2 G/dL (31.0-37.0); MEAN CORPUSCULAR VOLUME 86 fL (80-100); MONOCYTES # (AUTO) 0.6 K/uL (0.1-1.0); MONOCYTES % (AUTO) 7.3 % (2.0-9.0); NEUTROPHILS # (AUTO) 5.4 K/uL (1.8-7.7); NEUTROPHILS % (AUTO) 61.9 % (40.0-70.0); PLATELET COUNT (AUTO) 532 K/uL (150-450); RED BLOOD CELL COUNT(AUTO) 4.87 MIL/uL (4.50-5.90); RED CELL DISTRIBUTION WIDTH 16.2 % (11.5-14.5)
[2019-02-04 00:08] LABS: ANION GAP 13 mmol/L (8-16); CALCIUM, TOTAL 8.4 mg/dL (8.8-10.5); CARBON DIOXIDE 21 mmol/L (22-29); CHLORIDE 108 mmol/L (98-107); CREATININE 0.87 mg/dL (0.60-1.30); GLOMERULAR FILTR. RATE CALC > 60 mL/min (>60); GLUCOSE,RANDOM 111 mg/dL (70-110); POTASSIUM 3.1 mmol/L (3.5-5.1); SODIUM SERUM 142 mmol/L (136-145); UREA NITROGEN, BLOOD 9 mg/dL (7-18)
[2019-02-04 00:23] LABS: ALANINE AMINOTRANSFERASE 32 U/L (12-78); ALBUMIN 2.9 g/dL (3.4-5.0); ALKALINE PHOSPHATASE 122 U/L (46-116); ASPARTATE AMINOTRANSFERASE 34 U/L (15-37); BILIRUBIN,TOTAL 0.1 mg/dL (0.1-1.0); TOTAL PROTEIN, SERUM 7.9 g/dL (6.4-8.2)
[2019-02-04 05:47] VITALS: BP 135/72
== END 2019-02-04 05:58 | disposition home or self-care (01) ==
LOC: EMS 23:22
DX: F10.129 Alcohol abuse with intoxication, unspecified (principal); R41.82 Altered mental status, unspecified; Z79.899 Other long term (current) drug therapy; Y90.8 Blood alcohol level of 240 mg/100 ml or more
CPT/HCPCS: 36415; 80053; 85025; 99283; G0480